=== PATIENT | female | born 1990 | race Caucasian/White ===

== ENCOUNTER → 2018-03-21 08:40 | Outpatient (CLI) | payer OTHER, SELFPAY ==
--- NOTE | 2018-03-21 08:40 | DT_ITS ---
This patient was seen during an EMR downtime March 18, 2018 - March 25, 2018. This patient may have a combination of paper and electronic documentation or all paper documentation. All documentation is viewable within the e-chart portion of [facility] for each patient visit.
[2018-04-02 14:47] LABS: HPV Reflexed? NOT INDICATED
== END ==
PROVIDERS: Visit Provider Obstetrics & Gynecology
DX: Z12.4 Encounter for screening for malignant neoplasm of cervix (principal)
CPT/HCPCS: 88175; G0145

== ENCOUNTER → 2018-04-30 08:04 | Outpatient (CLI) | payer OTHER, SELFPAY ==
[2018-04-30 08:57] LABS: Anion Gap 7 (5-15); BUN 17 mg/dL (7-18); BUN/Creat Ratio 16.3 RATIO (10-20); Calcium,Total 8.8 mg/dL (8.5-10.1); Chloride 108 mmol/L (98-107); Cholesterol 111 mg/dL (200); Creatinine, Serum 1.04 mg/dL (0.55-1.02); EST Glomerular Filtration Rate 68 mL/min (>60); Est Glom Filt Rate - Afr Amer 82 mL/min (>60); Glucose 85 mg/dL (74-106); High Density Lipoprotein 43 mg/dL; Potassium 4.4 mmol/L (3.5-5.1); Sodium Level 142 mmol/L (136-145); Triglycerides 43 mg/dL; Very Low Density Lipoprotein 9 mg/dL (5-40)
== END ==
PROVIDERS: Family Provider Family Medicine; PCP Family Medicine; Visit Provider Family Medicine
DX: Z00.00 Encounter for general adult medical examination without abnormal findings (principal)
CPT/HCPCS: 36415; 80048; 80061

== ENCOUNTER → 2019-06-18 07:57 | Outpatient (CLI) | payer OTHER, SELFPAY ==
[2019-06-18 08:33] LABS: Absolute Lymphocyte Count 2.53 X10^3/uL (0.83-4.51); Absolute Neutrophil Count 2.2 X10^3/uL (2.0-7.7); Basophil# 0.02 X10^3/uL; Basophil% 0.4 % (0-1); Eosinophil# 0.04 X10^3/uL; Eosinophils% 0.8 % (0-5); Hematocrit 39.2 % (37-47); Hemoglobin 12.8 g/dL (12.0-15.0); Lymphocyte # 2.53 X10^3/ul (4.0); Lymphocyte % 48.6 % (19-41); Mean Corp Hgb Conc 32.7 g/dL (32-36); Mean Corpuscular Hgb 31.1 pg (27.0-32.0); Mean Corpuscular Volume 95.4 fL (81-99); Mean Platelet Vol. 10.8 fl (6.2-12.0); Monocyte% 7.7 % (0-10); NRBC Flagged by Analyzer 0 % (0-5); Neutrophil # 2.21 X10^3/uL (2.7-7.7); Neutrophil % 42.3 % (47-70); Platelet Count 191 K/mm3 (150-450); RBC Distribution Width CV 12.4 % (11.6-14.6); RBC Distribution Width SD 43.7 fl (35.1-43.9); Red Blood Count 4.11 M/mm3 (4.2-5.4); White Blood Count 5.2 K/mm3 (4.4-11.0)
[2019-06-18 09:00] LABS: Anion Gap 5 (5-15); BUN 17 mg/dL (7-18); BUN/Creat Ratio 18.5 RATIO (10-20); Chloride 108 mmol/L (98-107); Cholesterol 134 mg/dL (200); Creatinine, Serum 0.92 mg/dL (0.55-1.02); EST Glomerular Filtration Rate 77 mL/min (>60); Est Glom Filt Rate - Afr Amer 93 mL/min (>60); Glucose 98 mg/dL (74-106); High Density Lipoprotein 60 mg/dL; Potassium 4.2 mmol/L (3.5-5.1); Sodium Level 142 mmol/L (136-145); Thyroid Stim Hormone (TSH) 2.61 uIU/mL (0.358-3.74); Triglycerides 56 mg/dL; Very Low Density Lipoprotein 11 mg/dL (5-40)
== END ==
PROVIDERS: Family Provider Family Medicine; PCP Family Medicine; Referring Provider Family Medicine; Visit Provider Family Medicine
DX: Z01.419 Encounter for gynecological examination (general) (routine) without abnormal findings (principal); R53.83 Other fatigue
CPT/HCPCS: 36415; 80048; 80061; 84443; 85025

== ENCOUNTER → 2019-06-20 10:18 | Outpatient (CLI) | payer OTHER, SELFPAY ==
[2019-06-20 12:19] LABS: Erythrocyte Sedimentation Rate 1 mm/hr (0-20)
[2019-06-20 13:50] LABS: CRP < 2.90 mg/L (0.0-3.0); Rheumatoid Factor < 10.0 IU/mL (<15)
[2019-06-22 10:40] LABS: CMV Acute Antibody IgM < 30.0 AU/mL (0.0-29.9); CMV Antibody IgG < 0.60 U/mL (0.00-0.59); EBV Acute VCA IgM < 36.0 U/mL (0.0-35.9); EBV Early Antigen IgG <9.0 U/mL (0.0-8.9); EBV Nuclear Antigen IgG > 600.0 U/mL (0.0-17.9)
[2019-06-23 16:07] LABS: Anti-Centromere B Ab <0.2 AI (0.0-0.9); Anti-Chromatin 0.3 AI (0.0-0.9); Anti-Jo <0.2 AI (0.0-0.9); Anti-Scleroderma-70 AB <0.2 AI (0.0-0.9); RNP Ab 0.4 AI (0.0-0.9); SJOGREN'S Anti-SS-A test < 0.2 AI (0.0-0.9); SJOGREN'S Anti-SS-B test < 0.2 AI (0.0-0.9); Smith Ab <0.2 AI (0.0-0.9)
[2019-06-24 09:57] LABS: Anti-dsDNA Ab <1 IU/mL (0-9)
== END ==
PROVIDERS: Family Provider Family Medicine; PCP Family Medicine; Visit Provider Family Medicine
DX: R53.83 Other fatigue (principal)
CPT/HCPCS: 36415; 85652; 86140; 86225; 86235; 86431; 86644; 86645; 86663; 86664; 86665

== ENCOUNTER 2020-11-24 17:27 | Emergency (ER) | payer OTHER, SELFPAY ==
[2020-11-24 17:27] VITALS: BP 121/20; PULSE 48; PULSE 93; RESP 18; TEMP 36.4; O2SAT 95; BMI 29.1
--- NOTE | 2020-11-24 18:18 | ED.VISSUMM ---
- ER Visit Summary Date of Service: 11/24/20 Chief Complaint: Urinary retention History of Present Illness: The patient is a 30 F with no primary care physician. She had egg retrieval for in vitro fertilization at 1:[address] Thomas at [facility]. She reports that she did get general anesthesia for this and was out. It was a transvaginal approach. Patient reports she has not been able to urinate since 30 minutes prior to the procedure. She complains of a sharp suprapubic pain that is 10 out of 10 in severity. Nothing makes this better or worse. She is never had anything like this before. She denies any urinary complaints prior to the procedure. Physical Examination: Vitals: Stable. Afebrile. General: Well-nourished and well-developed. Head: Normocephalic atraumatic. Neck: Supple, no lymphadenopathy. No JVD. Nontender. Cardiovascular: Regular rate and rhythm. No murmurs. Respiratory: No respiratory distress. Clear to auscultation bilaterally. Abdominal: Soft, moderate suprapubic tenderness with an obviously distended bladder, nondistended, normal bowel sounds. No guarding, rebound, or peritoneal signs. Back: Nontender. Extremities: Nontender, no edema. Skin: Normal color, no rash. Neurologic: Alert and oriented ?3. Cranial nerves II through XII are intact. Normal strength and sensation. Psych: Normal affect. Test Results: CBC is remarkable for a white count of 13.7 with 71 segs neutrophils. Chem-7 is normal. UA is negative. Emergency Department Course and Treatment: Patient had a Boyer catheter placed with immediate return of 1 L of urine. It was then clamped. When this is released another 700 cc of urine returned. She reports that her pain is down to a 2 out of 10 in severity. Treatment Plan: The patient was discussed with Dr. Kong. She asked that the patient be discharged with a leg bag and they will set up an appointment with uro-Nitroglycerin Distributor in 2 days. Return to the emergency department for any worsening symptoms. Disposition: To home in improved and stable condition. Impression: 1 1. Urinary retention. 2. Postop day #0 status post egg retrieval with IV anesthesia. This note was generated with [employer] dictation software. It may contain incorrect words, spelling, and punctuation that were not noted in review of the chart prior to signing ED Disposition - Plan for ED Patient: Instructions: ED Urinary Retention, Female Prescriptions: Hydrocodone Bitart/Apap 5-325 [[place] 5MG-325MG] 1 tab PO Q4H PRN PRN 2 Days #10 tab PRN Reason: Pain Prescription Printed Additional Instructions: Follow-up with the urology/universal grinder tool in 2 days for a repeat exam.
[2020-11-24] MEDS: 0.9% Normal Saline 1,000 ML 999 ML IV (18:22)
[2020-11-24 18:26] LABS: Absolute Lymphocyte Count 2.98 X10^3/uL (0.83-4.51); Absolute Neutrophil Count 9.7 X10^3/uL (2.0-7.7); Basophil# 0.02 X10^3/uL; Basophil% 0.1 % (0-1); Eosinophil# 0.03 X10^3/uL; Eosinophils% 0.2 % (0-5); Hematocrit 37.8 % (37-47); Hemoglobin 12.5 g/dL (12.0-15.0); Lymphocyte # 2.98 X10^3/ul (4.0); Lymphocyte % 21.8 % (19-41); Mean Corp Hgb Conc 33.1 g/dL (32-36); Mean Corpuscular Hgb 30.8 pg (27.0-32.0); Mean Corpuscular Volume 93.1 fL (81-99); Mean Platelet Vol. 10.1 fl (6.2-12.0); Monocyte# 0.83 X10^3/uL; Monocyte% 6.1 % (0-10); NRBC Flagged by Analyzer 0 % (0-5); Neutrophil # 9.74 X10^3/uL (2.7-7.7); Neutrophil % 71.4 % (47-70); Platelet Count 212 K/mm3 (150-450); RBC Distribution Width CV 11.7 % (11.6-14.6); Red Blood Count 4.06 M/mm3 (4.2-5.4); White Blood Count 13.7 K/mm3 (4.4-11.0)
[2020-11-24 18:27] LABS: Bacteria 0 SEEN /hpf (None Seen); Mucous, Urine 0 SEEN /hpf (<or=2+); Red Blood Cells-Urine 0 SEEN /hpf (0-5); White Blood Cells 0 SEEN /hpf (0-5)
[2020-11-24 18:33] LABS: Anion Gap 4 (5-15); BUN 12 mg/dL (7-18); BUN/Creat Ratio 13.3 RATIO (10-20); Calcium,Total 8.7 mg/dL (8.5-10.1); Chloride 106 mmol/L (98-107); EST Glomerular Filtration Rate 78 mL/min (>60); Est Glom Filt Rate - Afr Amer 94 mL/min (>60); Estimated Creatinine Clearance 89.69 ml/min; Glucose 94 mg/dL (74-106); Potassium 3.6 mmol/L (3.5-5.1); Sodium Level 138 mmol/L (136-145)
[2020-11-24 18:35] LABS: Color, Urine Yellow (Yellow); Glucose, Dipstick Normal (Normal); Ketone-Dipstick Negative (Negative); Leukocyte Esterase-Dipstick Negative /ul (Negative); Nitrite-Dipstick Negative (Negative); Occult Blood-Urine Negative /ul (Negative); Protein-Dipstick Negative (Negative); Specific Gravity, Urine 1.005 (1.002-1.030); Urine Bilirubin Dipstick Negative (Negative); Urine Clarity Sl. Cloudy (Clear); Urine Urobilinogen Normal (Normal)
[2020-11-24 18:41] LABS: Squamous Epithelial Cells - UA 0-5 SEEN /hpf (5-10)
[2020-11-24 18:42] LABS: Amorphous Sediment 1+ PHOS
[2020-11-24 19:52] VITALS: BP 129/63; PULSE 53; RESP 16; O2SAT 100
== END 2020-11-24 20:01 | disposition home or self-care (01) ==
LOC: ED 18:44
PROVIDERS: Emergency Provider Emergency Medicine; PCP Family Medicine
DX: R33.9 Retention of urine, unspecified (principal); Z98.890 Other specified postprocedural states
CPT/HCPCS: 51702; 80048; 81001; 85025; 96360; 99284; J7030; A4216

== ENCOUNTER 2021-10-20 15:13 | Emergency (ER) | payer OTHER, SELFPAY ==
[2021-10-20 15:15] VITALS: BP 147/95; PULSE 62; RESP 18; TEMP 35.8; O2SAT 99; BMI 33.0
--- NOTE | 2021-10-20 15:51 | ED.VIS.FEGU ---
HPI HPI - Female History of Present Illness Chief Complaint: Vag Bleeding Informant: patient Bleeding Issue: Positive for Vaginal bleeding Onset: Days (4) Context: - (since 4d ago) Timing: Continuous Current Severity: Similar to period Maximum Severity: Similar to period Narrative Narrative: Patient has spontaneous vaginal delivery 4 days ago, she was 41 weeks gestation and was induced. She has had bleeding ever since, today she had a large clot come out with the bleeding that is no worse otherwise. She denies any systemic symptoms. She talked to her OB about the clot and was advised to come to the nearest emergency department for evaluation. She denies any near syncope, vomiting, pain in her abdomen, trouble urinating, or fevers/chills. PFSH PFSH Medical History no medical history no medical history Allergy/AdvReac Type Severity Reaction Status Date / Time No Known Allergies Allergy Verified 10/20/21 15:18 Surgical History no surgical history Social History Smoking Status: Never smoker ROS ROS ED Constitutional Constitutional ED: Denies chills or fever(s) Gastrointestinal Gastrointestinal: Denies abdominal pain, constipation, fecal incontinence, nausea or vomiting Genitourinary Genitourinary ED: Reports as per HPI, vaginal bleeding and other Details: no urinary retention ; Denies abdominal discomfort or urinary incontinence Musculoskeletal Musculoskeletal: Reports as per HPI and back pain; Denies neck pain Integumentary Denies rash or wounds Neurologic Neurologic: Denies headache(s), paresthesias or weakness EXAM Physical Exam Const Vital Signs: 10/20/21 15:15 10/20/21 16:20 10/20/21 17:09 Temperature 96.5 F L Temperature Source Temporal Pulse Rate 62 88 70 Respiratory Rate 18 14 16 Blood Pressure 147/95 H 128/64 H Blood Pressure Mean 112 85 Pulse Ox 99 98 97 Oxygen Delivery Method Room Air Room Air Room Air Positive well nourished and well developed Constitutional Narrative: Well-appearing, no distress, conversive in full sentences without any apparent discomfort General Appearance ED: well developed and NAD HEENT Negative for trauma or tenderness Eyes PERRL and EOMs intact bilaterally Neck full ROM and supple Cardio regular rate, regular rhythm and no murmurs Rate: Negative for tachycardic GI normal to inspection, nondistended, normoactive bowel sounds and soft to palpation GI Narrative: Mild suprapubic tenderness, fundus palpable well below the umbilicus Speculum Exam - Vagina: vaginal bleeding Back/Spine normal to inspection Thoracic Spine / Upper Back: paraspinal muscle tenderness Lumbar Spine / Lower Back: ROM limited and straight leg raise negative bilaterally Extremity normal to inspection, full ROM and no pedal edema Neuro oriented x3, no sensory deficits noted and gait normal Sensorium / Orientation: alert Motor Exam: strength 5/5 throughout Plantar Reflex: Downgoing: bilateral Psych mental status grossly normal and thought process normal Skin no rashes or lesions noted and no wounds MDM MDM MDM Narrative Medical decision making narrative: Blood counts are good, her vital signs are stable, I discussed with the quality control microbiology supervisor on for Dr. Lara, both with the patient's OB practice, they requested a transabdominal ultrasound be done, we did that and it did not show any radiographically visible products of conception, I described the findings from the radiologist on the ultrasound, and the quality control microbiology supervisor was okay with the patient going home and following up, communicating with them with any other acute issues until her routine scheduled follow-up. Patient comfortable with that plan. Lab Data Attestation: I reviewed the patient's lab results. Labs: Laboratory Results - last 24 hr 10/20/21 16:10 WBC 11.3 H RBC 3.91 L Hgb 12.6 Hct 37.1 MCV 94.9 MCH 32.2 H MCHC 34.0 RDW Std Deviation 43.4 RDW Coeff of Courtney 12.5 Plt Count 270 MPV 9.7 Immature Gran % (Auto) 0.400 Neut % (Auto) 76.2 H Lymph % (Auto) 16.4 L Rice % (Auto) 6.3 Eos % (Auto) 0.4 Baso % (Auto) 0.3 Absolute Neuts (auto) 8.6 H Absolute Lymphs (auto) 1.86 Nucleated RBC % 0 Radiography Diagnostic Testing: Clinical Impression(s) from Imaging Studies Pelvis Ultrasound 10/20/21 16:00 IMPRESSION: There are no acute findings. Enlarged uterus. Electronically Signed: Corey Rosas MD at 17:34 EST , Service support , Discharge Plan Triage Chief Complaint: Vag Bleeding ED Provider: Justin,Carl Dx/Rx/DC Orders Clinical Impression: hemorrhage of vagina Instructions: ED Dysfunctional Uterine Bleeding Primary Care Provider: Care Physician,No Primary Referrals: Jose Enrique Rice DO [NON-STAFF] - (As scheduled, or call with any concerns sooner if needed) Care Physician,No Primary [Primary Care Provider] - Disposition Disposition: Home, Self Care
--- NOTE | 2021-10-20 16:00 | US_ITS ---
STUDY: ULTRASOUND OF THE FEMALE PELVIS - COMPLETE REASON FOR EXAM: Female, 31 years old. Technologist Notes Other, HEAVY BLEEDING W/ CLOTS, VAGINAL DELIVERY 4 DAYS AGO vag bleeding, eval for retained POC TECHNIQUE: Transabdominal COMPARISON: None. FINDINGS: The uterus is anteverted and is in a midline position. The uterus measures 18.8 cm. Normal uterine cervix. The endometrium measures 7 mm in thickness, and is hyperechoic. There is no demonstrated endometrial mass. There is no demonstrated myometrial mass. I.U.D. - The patient does not have an I.U.D. The right ovary is visualized. The right ovary measures 3.3 cm. There is no right ovarian cyst or ovarian mass. There is no visualized right adnexal mass or complex lesion. There is normal arterial and normal venous vascularity. The left ovary is visualized. The left ovary measures 2.5 cm. There is no left ovarian cyst or ovarian mass. There is no visualized left adnexal mass or complex lesion. There is normal arterial and normal venous vascularity. There is no fluid in the cul-de-sac. US/Pelvic (Non ) IMPRESSION: There are no acute findings. Enlarged uterus. Electronically Signed: Corey Rosas MD at 17:34 EST , Service support ,
[2021-10-20 16:20] VITALS: PULSE 88; RESP 14; O2SAT 98
[2021-10-20 16:21] LABS: Absolute Lymphocyte Count 1.86 X10^3/uL (0.83-4.51); Absolute Neutrophil Count 8.6 X10^3/uL (2.0-7.7); Basophil# 0.03 X10^3/uL; Basophil% 0.3 % (0-1); Eosinophil# 0.04 X10^3/uL; Eosinophils% 0.4 % (0-5); Hematocrit 37.1 % (37-47); Hemoglobin 12.6 g/dL (12.0-15.0); Lymphocyte # 1.86 X10^3/ul (0.83-4.51); Lymphocyte % 16.4 % (19-41); Mean Corpuscular Hgb 32.2 pg (27.0-32.0); Mean Corpuscular Volume 94.9 fL (81-99); Mean Platelet Vol. 9.7 fl (6.2-12.0); Monocyte# 0.71 X10^3/uL; Monocyte% 6.3 % (0-10); NRBC Flagged by Analyzer 0 % (0-5); Neutrophil # 8.63 X10^3/uL (2.7-7.7); Neutrophil % 76.2 % (47-70); Platelet Count 270 K/mm3 (150-450); RBC Distribution Width CV 12.5 % (11.6-14.6); RBC Distribution Width SD 43.4 fl (35.1-43.9); Red Blood Count 3.91 M/mm3 (4.2-5.4); White Blood Count 11.3 K/mm3 (4.4-11.0)
[2021-10-20 17:09] VITALS: BP 128/64; PULSE 70; RESP 16; O2SAT 97
[2021-10-20 18:05] VITALS: BP 128/79; PULSE 74; RESP 16; TEMP 36.6; O2SAT 97
== END 2021-10-20 18:06 | disposition home or self-care (01) ==
PROVIDERS: Emergency Provider Emergency Medicine; Visit Provider Emergency Medicine
DX: O72.2 Delayed and secondary postpartum hemorrhage (principal); Z3A.41 41 weeks gestation of pregnancy
CPT/HCPCS: 76856; 85025; 99284

== ENCOUNTER 2023-03-03 20:43 | Outpatient (CLI) | payer OTHER, SELFPAY ==
[2023-03-03 21:03] VITALS: PULSE 89; O2SAT 96
[2023-03-03 21:04] VITALS: BP 132/71; PULSE 84
--- NOTE | 2023-03-07 19:07 | OB.TRI.NOTE ---
HPI - General General Date of Admission: 03/05/23 Date of Service: 03/05/23 Chief Complaint: abdominal pain HPI Narrative TINO JENSEN, is a 32 F who presents 3 P1 at 29 weeks presents for some abdominal pain. She denies any vaginal bleeding or leaking of fluid. She called her routine physician and they told her she should be evaluated. [facility] PFS Medical History Painless rectal bleeding Home Medications Bacillus coagulans 800 million cell tablet (Digestive Advantage Probiotics-Prebiotic) cell PO 09/05/22 [History Last Taken Unknown] calcium citrate 250 mg PO .q.i.d 09/05/22 [History Last Taken Unknown] mupirocin 2 % topical ointment 1 applic topical TID 09/05/22 [History Last Taken Unknown] omega-3 fatty acids 1,000 mg capsule 1,000 mg PO DAILY 09/05/22 [History Last Taken Unknown] thyroid (pork) 30 mg tablet ([place] Thyroid) 30 mg PO DAILY 09/05/22 [History Last Taken Unknown] Allergy/AdvReac Type Severity Reaction Status Date / Time fentanyl AdvReac Other Verified 03/03/23 21:51 Family History Mother Arthritis Depression Osteoarthritis Osteoporosis Surgical History S/P LASIK surgery of both eyes Social History household members: spouse Smoking Status: Never smoker alcohol intake: current alcohol intake frequency: a few times a month NST FHR Rate Baby A Baseline: 130 Variability:: Moderate Accelerations:: 15 x 15 Decelerations:: None NST Reactive:: Yes FHR Category:: Category I Uterine Activity:: quiet Assessment & Plan (1) 29 weeks gestation of : PLAN: 29-week high risk multigravida with abdominal pain. Nonspecific abdominal pain. No evidence of labor. No UTI symptoms. Patient was discharged home to follow-up with her routine physician or return as needed.
== END 2023-03-03 21:55 | disposition home or self-care (01) ==
LOC: WPOUT 20:48 → WP 20:48
PROVIDERS: Referring Provider Advanced Practice Midwife; Visit Provider Advanced Practice Midwife
DX: O99.891 Other specified diseases and conditions complicating pregnancy (principal); R10.9 Unspecified abdominal pain; Z3A.29 29 weeks gestation of pregnancy
CPT/HCPCS: 59025; 59050; 99221; G0378

== ENCOUNTER 2023-03-26 01:28 | Emergency (ER) | payer OTHER, SELFPAY ==
[2023-03-26 01:29] VITALS: BP 128/79; PULSE 108; RESP 15; TEMP 36.7; O2SAT 97
[2023-03-26] MEDS: Lidocaine 2% /Epi 1:100 (20ml) 20 ML VIAL INFILT (02:54)
--- NOTE | 2023-03-26 04:06 | EX.ED.DYSGE1 ---
HPI History of Present Illness Chief Complaint: Abscess Informant: patient Narrative Narrative: Patient is a 32-year-old female who is a who reports she is approximate 35 weeks . She states over the last 2 to 3 days she has noticed increasing pain and swelling along the left lower portion of her inner thigh/labia. She states she was planning on calling the LDR NURSE but the pain is increased to the point where she cannot take anymore and is not responding to [id number] medications and with concern for infection she presents for evaluation. She denies any vaginal bleeding or discharge or loss of fluid PFSH PFS Medical History Painless rectal bleeding Home Medications Bacillus coagulans 800 million cell tablet (Digestive Advantage Probiotics-Prebiotic) cell PO 09/05/22 [History Last Taken Unknown] calcium citrate 250 mg PO .q.i.d 09/05/22 [History Last Taken Unknown] mupirocin 2 % topical ointment 1 applic topical TID 09/05/22 [History Last Taken Unknown] omega-3 fatty acids 1,000 mg capsule 1,000 mg PO DAILY 09/05/22 [History Last Taken Unknown] thyroid (pork) 30 mg tablet ([place] Thyroid) 30 mg PO DAILY 09/05/22 [History Last Taken Unknown] cephalexin 500 mg capsule 500 mg PO TID 7 days #21 caps 03/26/23 [Rx Last Taken Unknown] Allergy/AdvReac Type Severity Reaction Status Date / Time fentanyl AdvReac Other Verified 03/26/23 01:34 Family History Mother Arthritis Depression Osteoarthritis Osteoporosis Surgical History S/P LASIK surgery of both eyes Social History household members: spouse Smoking Status: Never smoker alcohol intake: current alcohol intake frequency: a few times a month ROS ROS ED Constitutional Constitutional ED: Denies chills or fever(s) ENT ENT ED: Denies sore throat Cardiovascular Cardiovascular: Denies chest pain Respiratory/Chest Respiratory/Chest: Denies cough or dyspnea Gastrointestinal Gastrointestinal: Denies abdominal pain, diarrhea, nausea or vomiting Genitourinary Genitourinary ED: Denies dysuria or hematuria Musculoskeletal Musculoskeletal: Denies myalgias Integumentary Reports abscess Neurologic Neurologic: Denies headache(s) Hematologic/Lymphatic Hematologic/Lymphatic: Denies easy bleeding or easy bruising EXAM Physical Exam Const Vital Signs: 03/26/23 01:29 Temperature 98.1 F Temperature Source Oral Pulse Rate 108 H Respiratory Rate 15 Blood Pressure 128/79 H Blood Pressure Mean 95 Pulse Ox 97 Oxygen Delivery Method Room Air Positive well nourished and well developed General Appearance ED: well developed Eyes PERRL and EOMs intact bilaterally Neck supple Resp normal respiratory effort and clear to auscultation bilaterally Cardio regular rate and regular rhythm Narrative: Along the left lower inguinal/perineal region there is a 1 x 2 cm area of erythema warmth and induration that is tender to touch most consistent with abscess. This lesion is just lateral of the labia and indicates it is more on the soft tissue skin not vaginal tissue. There is no discharge or bleeding noted from the vaginal os. Extremity normal to inspection Neuro oriented x3 and CN's II-XII intact bilaterally Sensorium / Orientation: alert Psych mental status grossly normal Skin Skin Narrative: Soft tissue changes along the left inguinal region as documented above consistent with abscess MDM MDM MDM Narrative Medical decision making narrative: Patient presented to the ER afebrile the area in question is located along the left lower inguinal region and does not appear to involve the vagina and there are no secondary changes to suggest systemic infection such as lymphangitic streaking or fever. Therefore at this time my concern for Bartholin cyst/abscess versus systemic infection from a secondary cellulitis is low. Also as the patient does not have abdominal pain or loss of fluid concern for issue such as spontaneous bleeding from a subchorionic hemorrhage or rupture membranes is low. I do not feel there is need for laboratory studies as the physical exam indicates the infection is localized in the soft tissue. Therefore the area was incised and drained as documented below and following this patient is safe for discharge and can follow-up with her LDR NURSE for further evaluation Patient had the left inguinal region cleaned with chlorhexidine. It was anesthetized with 8 mL of 2% lidocaine with epinephrine in local fashion. A #11 blade was used to make a 1 cm incision over top the area of induration. A large amount of purulent material was expressed. Loculations were dissected with a needle torres. The area was copiously irrigated with normal saline. Then quarter-inch endoform gauze was packed into the wound. Patient tolerated the procedure well without complication. History & Record Review Discussion w/independent historian: Patient Discharge Plan Triage Chief Complaint: Abscess ED Provider: Selvin Trevino Dx/Rx/DC Orders Clinical Impression: Abscess of female pelvis Instructions: ED Abscess Incision And Drainage Prescriptions: New cephalexin 500 mg capsule 500 mg PO TID 7 Days Qty: 21 0RF No Action mupirocin 2 % ointment 1 applic topical TID Digestive Advantage Probio-Pre 800 million cell tablet PO calcium citrate 250 mg calcium tablet 250 mg PO .q.i.d thyroid (pork) [[place] Thyroid] 30 mg tablet 30 mg PO DAILY omega-3 fatty acids 1,000 mg capsule 1,000 mg PO DAILY Primary Care Provider: Care Physician,No Primary Referrals: Care Physician,No Primary [Primary Care Provider] - Activity Restrictions/Additional Instructions: Follow-up with your LDR NURSE for repeat evaluation. If your packing does not fall out on its own remove it in 48 to 72 hours please. Please contact your LDR NURSE to notify them of the ER visit this morning/evening and tell them you have been prescribed Keflex/cephalexin for your pelvic abscess. If you have any further concerns or worsening of symptoms please return to the ER for repeat evaluation Disposition Disposition: Home, Self Care Discharge Date/Time: 03/26/23 04:22
[2023-03-26 04:20] VITALS: BP 122/70; PULSE 74; RESP 16; O2SAT 98; BMI 26.3
== END 2023-03-26 04:22 | disposition home or self-care (01) ==
PROVIDERS: Emergency Provider Emergency Medicine; Visit Provider Emergency Medicine
DX: O99.891 Other specified diseases and conditions complicating pregnancy (principal); N73.9 Female pelvic inflammatory disease, unspecified; Z3A.35 35 weeks gestation of pregnancy
CPT/HCPCS: 99282

== ENCOUNTER 2025-10-10 11:40 | Outpatient (CLI) | payer OTHER, SELFPAY ==
--- OUTSIDE RECORDS SUMMARY | 2025-10-10 11:46 | XMS RPT_ITS | CCD ---
Author Organization [facility] Care Team Providers Care Toilet And Laundry Soap Supervisor Name Role Phone PHYSICIAN, NONE Primary Care Physician Unavailab leslee RODRIGUEZ APRN-SATISH, LUIZ Primary Care Physician Care Physician, No Primary Referring Unava ilable Care Physician, No Primary Primary Care Unava ilable Clifford Anton Attending Unavailable Care Physician, No Primary Primary Care Unava ilable Dasia Barakat Referring Unavailable Dasia Barakat Attending Unavailable Care Physician, No Primary Primary Care Unava ilable Selvin Trevino Attending Unavailable Care Physician, No Primary Referring Unava ilable Care Physician, No Primary Primary Care Unava ilable Priscila Rivas NP Attending Unavailable LIEN LU-ANDREW, SHAHBAZ Chanel Attending Mireille vaJOSE ENRIQUE Correa DO Admitting Unavailab JOSE ENRIQUE Ballard DO Attending Unavailab leslee ZHANG, LUIZ Primary Care Maria Eugenia ALARCON, SHAHBAZ Chanel Attending Mireille vayazmin ZHANG, LUIZ Primary Care ATILIO Kaiser Admitting Unavailable ATILIO RODRIGUEZ Attending Unavailable ATILIO RODRIGUEZ Primary Care Unavailable PHYSICIAN, NOT RECORDED Primary Care Physician Corrie ALARCON, DASIA Cordova Attending Mireillev ailthu PHYSICIAN, NOT RECORDED Primary Care Unavaila SHAHBAZ Hairston Attending Mireille vayazmin ALARCON, HERNANDEZ Chanel Attending Unavai fredy PHYSICIAN, NOT RECORDED Primary Care Unavaila AMERICO De La Torre Attending Unavailable AJ ZACARIAS Primary Care Unavail able Allergies Allergy Classification Reported Allergen(s) Allergy Type Date of Onset Reaction(s) Facility Opioid Agonists (1 source) fentaNYL; Translations: [fentanyl] Drug Allergy [facility] (4 sources) fentaNYL; Translations: [fentanyl] Drug Allergy [facility] (1 source) fentaNYL Drug Allergy 03-26-2023 [facility] Repository Medications Current Medications Medication Drug Class(es) Dates Sig (Normalized) Sig (Original) calcium citrate 1040 mg oral tablet (11 sources) Start: 10-14-2021 calcium (as calcium citrate) 250 mg oral tablet Dose : 1,000 mg = 4 tab(s), Oral, qAM, # 60 tab(s), 0 Refill(s) Start Date: 10/14/21 Status: Ordered Medication Dispense Status: Completed Quantity: 60.0 Unit: tab(s) Total Allowed Fills: 1 Fills Dispensed: 0 Collagen Skin Renewal 30 mg-833.33 mg oral tablet (1 source) Start: 07-28-2025 take 1 tablet by mouth once daily Collagen Skin Renewal 30 mg-833.33 mg oral tablet Dose = 3 tab(s), Oral, qDay, # 120 tab(s), 0 Refill(s) Start Date: 07/28/25 Status: Ordered Medication Dispense Status: Completed Quantity: 120.0 Unit: tab(s) Total Allowed Fills: 1 Fills Dispensed: 0 Digestive Advantage Daily Probiotics oral capsule (11 sources) Start: 10-14-2021 take 1 capsule by mouth once daily Digestive Advantage Daily Probiotics oral capsule Dose = 1 cap(s), Oral, qDay, # 30 cap(s), 0 Refill(s) Start Date: 10/14/21 Status: Ordered Medication Dispense Status: Completed Quantity: 30.0 Unit: cap(s) Total Allowed Fills: 1 Fills Dispensed: 0 Start: 10-14-[address] [facility] once daily Digestive Advantage Daily Probiotics oral capsule Dose = 1 cap(s), Oral, qDay, # 30 cap(s), 0 Refill(s) Start Date: 10/14/21 Status: Ordered docusate sodium 100 mg oral capsule (2 sources) Start: 10-14-2021 Colace 100 mg oral capsule Dose : 100 mg = 1 cap(s), Oral, BID, PRN as needed for constipation, # 20 cap(s), 0 Refill(s) Start Date: 10/14/21 Status: Ordered Fish Oils (11 sources) Start: 10-14-2021 Fish Oil 1000 mg oral capsule Dose : 1,000 mg = 1 cap(s), Oral, qDay, # 90 cap(s), 0 Refill(s) Start Date: 10/14/21 Status: Ordered Medication Dispense Status: Completed Quantity: 90.0 Unit: cap(s) Total Allowed Fills: 1 Fills Dispensed: 0 Start: 10-14-2021 Fish Oil 1000 mg oral capsule Dose : 1,000 mg = 1 cap(s), Oral, qDay, # 90 cap(s), 0 Refill(s) Start Date: 10/14/21 Status: Ordered Miralax Powder Packet (2 sources) Start: 10-14-2021 take 17 doses by mouth once daily Miralax Powder Packet Dose : 17 gram(s) =, Oral, qDay, dissolve in water before taking, # 14 EA, 0 Refill(s) Start Date: 10/14/21 Status: Ordered Porcine Thyroid 60 Mg Capsule (1 source) Start: 07-21-2025 Porcine Thyroi d 60 Mg Capsule Porcine Thyroid 60 Mg Capsule, 0 Refill(s), 102.3 Start Date: 07/21/25 Status: Ordered Medication Dispense Status: Completed Total Allowed Fills: 1 Fills Dispensed: 0 Multivitamins (11 sources) Start: 10-14-2021 take 1 tablet by mouth once daily Multivitamins Dose = 1 tab(s), Oral, qDay, # 90 tab(s), 0 Refill(s) Start Date: 10/14/21 Status: Ordered Medication Dispense Status: Completed Quantity: 90.0 Unit: tab(s) Total Allowed Fills: 1 Fills Dispensed: 0 Start: 10-14-2021 take 1 tablet by felicia th once daily Multivitamins Dose = 1 tab(s), Oral, qDay, # 90 tab(s), 0 Refill(s) Start Date: 10/14/21 Status: Ordered Probiotic (11 sources) Start: 10-14-2021 take 1 capsule by mo uth once daily in the morning Probiotic 1 capsule, Oral, qAM, 0 Refill(s) Start Date: 10/14/21 Status: Ordered Medication Dispense Status: Completed Total Allowed Fills: 1 Fills Dispensed: 0 Start: 10-14-2021 take 1 capsule by mo ut once daily in the morning Probiotic 1 capsule, Oral, qAM, 0 Refill(s) Start Date: 10/14/21 Status: Ordered Progesterone (1 source) Progesterone Start: 07-21-2025 Progesterone 1 00 Mg (Straw) Tablet Progesterone 100 Mg (Straw) Tablet, 0 Refill(s), 102.3 Start Date: 07/21/25 Status: Ordered Medication Dispense Status: Completed Total Allowed Fills: 1 Fills Dispensed: 0 thyroid (halfway) 30 mg oral tablet (10 sources) Start: 08-18-2022 [place] Thyroid 30 mg oral tablet Dose : 30 mg = 1 tab(s), Oral, qDay, # 30 tab(s), 0 Refill(s) Start Date: 08/18/22 Status: Ordered Medication Dispense Status: Completed Quantity: 30.0 Unit: tab(s) Total Allowed Fills: 1 Fills Dispensed: 0 Start: 10-14-2021 [place] Thyroid 15 mg oral tablet Dose : 15 mg = 1 tab(s), Oral, qDay, # 30 tab(s), 0 Refill(s) Start Date: 10/14/21 Status: Ordered Vitamin D with Minerals oral tablet (10 sources) Start: 10-14-2021 take 1 tablet by mouth once daily Vitamin D with Minerals oral tablet Dose = 1 tab(s), Oral, qDay, # 30 tab(s), 0 Refill(s) Start Date: 10/14/21 Status: Ordered Medication Dispense Status: Completed Quantity: 30.0 Unit: tab(s) Total Allowed Fills: 1 Fills Dispensed: 0 Start: 10-14-2021 take 1 tablet by felicia once daily Vitamin D with Minerals oral tablet Dose = 1 tab(s), Oral, qDay, # 30 tab(s), 0 Refill(s) Start Date: 10/14/21 Status: Ordered Problems Problem Classification Problem Date Documented Da te Episodic/Chronic Abdominal pain (1 source) Unspecified abdominal pain; Translations: [Unspecified abdominal pain] Onset: 03-14-2023 Episodic Gastrointestinal hemorrhage (18 sources) Painless rectal bleeding; Translations: [Rectal hemorrhage] 03-31-2022 Episodic Immunizations and screening for infectious disease (11 sources) Rubella non-immune 10-14-2021 Episodic OB-related trauma to perineum and vulva (2 sources) Second degree perineal tear during delivery - delivered; Translations: [Second degree perineal laceration during delivery] Onset: 10-16-2021 Episodic Other complications of (1 source) ; Translations: [Outcome of delivery, unspecified] Onset: 10-16-2021 Episodic Other complications of (1 source) Supervision of high risk done; Translations: [Supervision of resulting from assisted reproductive technology, unspecified trimester] Onset: 10-14-2021 Episodic Other connective tissue disease (1 source) Pain in left thigh; Translations: [Pain in left thigh] Onset: 03-30-2023 Episodic Other nutritional; endocrine; and metabolic disorders (6 sources) Body mass index 30+ - obesity 05-11-2023 Chronic Other and delivery including normal (12 sources) ; Translations: [Delivery normal] Onset: 01-16-2021 10-14-2021 Episodic Comment on above: System added from do cumentation. Status documented as Yes on Admission Other screening for suspected conditions (not mental disorders or infectious disease) (1 source) Encounter for screening for diabetes mellitus; Translations: [Screening for diabetes mellitus] Onset: 08-11-2025 Episodic Residual codes; unclassified (1 source) Gestation period, 41 weeks; Translations: [41 weeks gestation of ] Onset: 10-16-2021 Episodic Residual codes; unclassified (1 source) Gestation period, 40 weeks; Translations: [40 weeks gestation of ] Onset: 05-19-2023 Episodic Residual codes; unclassified (1 source) 25 weeks gestation of ; Translations: [25 weeks gestation of ([facility])] Onset: 08-11-2025 Episodic Thyroid disorders (2 sources) Hypothyroidism; Translations: [Other specified hypothyroidism] Onset: 08-11-2025 07-28-2025 Chronic Results Test Name Value Interpretation Reference Range Facility Artem 07-30-2025 LAMONTE Telephone (4CQ) ---- JIA JENSEN ([id number]) 1990 F Date Time Provider Department 07/30/25 SELF 4CQ During your visit today, we recorded the following information about you: Lotus Hirsch 07/30/2025 3:25 PM Signed Pt is 24 weeks wanting to transfer care from [facility] to [facility]. Please advise, Thank you Kymberly Bryan RN 07/30/2025 3:38 PM Signed Call placed to patient to triage for new OB appt. Name and verified. Patient wishes to transfer to [facility] for OB care. MAYRA? 11/18/2025 Gestational age? 24w1d Patient aware to sign up for My Chart so she can receive the healthcare educator messages. What facility is she transferring from? [facility] When was her last office visit or will be the last visit with the current facility? 3/4 w ago Does patient have records she is bringing with her? Can have faxed, needs fax number Any current pelvic pain/vaginal bleeding or any medical concerns that affect the ? no Has patient tested + for GDM or HTN with this ? Has not had glucose yet, BP WNL Have you had your anatomy scan? WNL Which office/provider would the patient like to establish in? [facility] Will route this encounter to the desired office. Keli Chaudhari RN 07/30/2025 4:42 PM Signed Patient called and New OB appointment scheduled. 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 - MULTIVITAMIN ORAL Take by mouth once daily. - PNV/iron bg/omega-3/folic acid ( UJP-PGXI-WQ-OMEGA 3 ORAL) Take by mouth once daily. 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 LABORATORYOrdered By: SYSTEM SYSTEM on 07-28-2025 TSH Qn 1.68 m[IU]/L Normal 0.36 - 3.74 mcIU/mL AO ADM SS TSHRon 07-28-2025 TSH Qn 1.68 m[IU]/L Normal 0.36-3.74 [facility] Comment on above: Performed By: #### T [facility] #### [address] [address] ED MED ADMINISTRATION DETAIL on 04-11-2025 ED MED ADMINISTRATION DETAIL Form Tamper Operator Medication Administration Record [address] [address] [id number] 04/08/2025 Patient: JIA JENSEN Sex: Female : 1990 Age: 34y MEASUREMENTS: Wt: 86.2 kg, Ht/Artem: 67.0 in, BMI: 29.76 ALLERGIES: No known drug allergies Medication Ordered Medication Administration Date/Time IV NS 0.9 % 1000 18:59 04/08 IV NS 0.9 % 1000 mL started in bag#1 1000 mL at Started mL at 500 mL/hr 500 mL/hr via Site# 1. Allergies verified. IV patency established. IV 18:59 04/08/2025 (NOW x1) site checked: no pain, redness, or swelling. IV flushed thoroughly Dung Barrett R.N. pre-medication administration. Information reviewed with patient Stopped including reason for taking this medication. - 18:59 Dung Barrett, 20:00 04/08/2025 Amada Lara R.N. Scanned 20:00 04/08 Medication Discontinued: bag #1 infused. Total amount infused: 1000 mL. - 21:48 Linda Lara R.N. Potassium Chloride 19:54 04/08 Potassium Chloride PO 40 mEq given. Allergies Given PO 40 mEq (NOW verified and confirmed 5 rights. Information reviewed with patient. - 19:54 04/08/2025 x1) 19:54 Amada Quispe R.N. Scanned 1 of 1 Normal [facility] ED NURSES CLINICAL NOTEon ED NURSES CLINICAL NOTE Nurse Narrative Nurse Clinical Narrative [facility] [address] [facility] [place] [address] [id number] 04/08/2025 18:39:00 Patient: JIA JENSEN Sex: Female : 1990 Age: 34y Disposition: Discharge to Home Disposition Decision Time: 21:04 04/08/2025 Departure Time: 21:17 04/08/2025 TRIAGE Arrived by private vehicle. Historian: (patient). Accompanied by family. Primary physician (SAMAN/ VALENTIN Groves). Triage time: 18:32 04/08/2025. Acuity: LEVEL 3. Chief Complaint: SHORTNESS OF BREATH. This started today. No fever, chills, cough, wheezing or chest pain. No back pain. SEPSIS SCREEN: NEGATIVE. SIRS criteria negative. No possible sources of infection. -- 18:44 04/08/25 ANANDA Mario R.N. 18:43 04/08/25. BP: 128/82 MAP: 97. HR: 63. RR: 14. O2 saturation: 100% Temperature: 98.6 F. Pain level now 0/10. -- 18:43 04/08/25 ANANDA Mario R.N. Measurements: 18:43 04/08/25 Wt: 86.2 kg, Ht/Artem: 67.0 in, BMI: 29.76 -- 18:43 04/08/25 ANANDA Mario R.N. Medications: Porcine Thyroid 60 Mg Capsule: TAKE 1 CAPSULE BY MOUTH ONCE DAILY -- 18:45 04/08/25 ANANDA Mario R.N. Ovidrel 250 mcg/0.5 mL subcutaneous syringe: INJECT 1 SYRINGE SUBCUTANEOUSLY WHEN DIRECTED -- 18:45 04/08/25 ANANDA Mario R.N. 1 of 4 Nurse Narrative progesterone 50 mg/mL intramuscular oil: INJECT 1 ML INTRAMUSCULARLY ONCE DAILY DIRECTED -- 18:45 04/08/25 ANANDA Mario R.N. 18:32 04/08/25. Preferred Pharmacy: ([facility]). -- 18:44 04/08/25 ANANDA Mario R.N. Allergies: no known drug allergies -- 18:41 04/08/25 ANANDA Mario R.N. Home Medications/Allergy Information Source: patient -- 18:40 04/08/25 ANANDA Mario R.N. Problems: Hypothyroidism -- 18:40 04/08/25 ANANDA Mario R.N. Surgeries: Endoscopy -- 18:40 04/08/25 ANANDA Mario R.N. History 18:32 04/08/25. PAST MEDICAL HX: Immunizations: status is unknown. Immunizations not up to date. LNMP: Last normal menstrual period unknown. 4. Para 2. Abortions 1. status: currently : EDC:2025 8 weeks. SOCIAL HX: Never smoker. No alcohol use or drug use. The patient has not traveled outside the [place] Infectious disease exposure: No infectious disease exposure. ABUSE ASSESSMENT: The patient answered yes to the question(s) Do you feel safe in your home? and no to the question(s) Are you afraid to go home?. Abuse denied. No suspicion of abuse. SELF HARM ASSESSMENT: Self harm assessment was performed. The patient answered no to the question(s) Have you recently felt down, depressed, or hopeless? and Do you have thoughts of harming or killing yourself?. 2 of 4 Nurse Narrative FALL RISK ASSESSMENT: Fall risk assessment completed. No risk factors identified. -- 18:44 04/08/25 ANANDA Mario R.N. Interventions 18:32 04/08/25. Advanced care plan discussed with patient (Full code). -- 18:44 04/08/25 ANANDA Mario R.N. PHYSICAL ASSESSMENT 19:04 04/08/25. GENERAL / NEURO / PSYCH: Alert. Oriented X 4. Appears in no acute distress. HEENT: Mucous membranes are pink. RESPIRATORY: No respiratory distress. Respirations not labored. Chest nontender. Breath sounds within normal limits. ( Pt states she feels like she cant take a deep breath). CVS: Normal sinus rhythm noted. Capillary refill less than 2 seconds. GI / : Abdomen soft and nontender. Bowel sounds within normal limits. SKIN: Skin is warm and dry. Normal skin turgor. -- 19:04 04/08/25 EDT Dung Barrett R.N. NURSING PROGRESS NOTES 18:40 04/08/25. Site #1 started in the left antecubital space with an 18g angiocath with aseptic technique and good blood return; 1 attempt. Blood drawn: rainbow set tube(s). Labeled in the presence of the patient and sent to the lab. Saline lock flushed with 5 mL saline. -- 18:40 04/08/25 EDT Dung Barrett R.N. 18:41 04/08/25. Two patient identifiers checked. Call light placed in reach. Side rails up x 1. Bed placed in lowest position. Brakes of bed on. -- 18:41 04/08/25 EDT Dung Barrett R.N. 18:50 04/08/25. 12-LEAD EKG: EKG time: (18:41 04/08/2025). 12-Lead EKG was performed by me and shown to the ED physician. -- 18:50 04/08/25 EDT Edda Faulkner 18:59 04/08/25. IV NS 0.9 % 1000 mL started in bag#1 1000 mL at 500 mL/hr via Site# 1. Allergies verified. IV patency established. IV site checked: no pain, redness, or swelling. IV flushed thoroughly pre-medication administration. Information reviewed with patient including reason for taking this medication. -- 18:59 04/08/25 EDT Dung Barrett R.N. 19:00 04/08/25. Care transferred and report received (Kiara). -- 19:22 04/08/25 EDT Linda Lara R.N. 19:13 04/08/25. Head of bed elevated. The patient reports no complaints and the patient is calm and resting quietly. Side rails up x (more content not included)... Normal [facility] ED ORDER SHEET (CPOE ONLY)on 04-11-2025 ED ORDER SHEET (CPOE ONLY) Order Sheet Order Sheet [place] [id number] [facility] [place] [address] [id number] 04/08/2025 Patient: JIA JENSEN Sex: Female : 1990 Age: 34y MEASUREMENTS: Wt: 86.2 kg, Ht/Artem: 67.0 in, BMI: 29.76 ALLERGIES: No known drug allergies MEDICATION/IV/DRIP/ FLUID ORDERS Order Description Priority Entered Acknowledged Completed IV NS 0.9 %1000 mL at 500 18:47 04/08/2025 18:58 18:59 mL/hr (NOW x1) Atilio Rodriguez, 04/08/2025 04/08/2025 D.ODung Randle R.N. R.N. Potassium Chloride PO40 mEq 19:34 04/08/2025 19:51 19:54 (NOW x1) Priscilla Acevedo M.D. 04/08/2025 04/08/2025 Linda Quispe R.N. R.N. LAB ORDERS Order Description Priority Entered Acknowledged Collected Completed CBC w Diff Stat Stat 18:47 04/08/2025 19:00 04/08/2025 19:00 04/08/2025 Dung Ruth R.N. Kobe Miller, R.N. D.O. CMP Stat Stat 18:47 04/08/2025 19:00 04/08/2025 19:00 04/08/2025 Dung Ruth R.N. Kobe Miller, RItaN. 1 of 3 Order Sheet D.O. Urinalysis Stat Stat 18:47 04/08/2025 19:00 04/08/2025 19:00 04/08/2025 Dung Ruth R.N. Kobe Miller, R.N. D.O. D-Dimer Stat Stat 18:47 04/08/2025 19:00 04/08/2025 19:00 04/08/2025 Dung Ruth R.N. Kobe Miller, R.N. D.OIta EKG - ED Stat Stat 18:47 04/08/2025 19:00 04/08/2025 19:00 04/08/2025 Dung Ruth R.N. Kobe Miller, R.N. D.OIta Troponin-I Stat Stat 19:32 04/08/2025 19:51 04/08/2025 20:01 04/08/2025 Alvin Aceves Debra Schrock, R.N. R.N. EKG - ED Stat Stat 19:32 04/08/2025 19:51 04/08/2025 20:01 04/08/2025 Alvin Aceves Debra Schrock, R.N. R.N. COVID PCR Stat Stat 19:34 04/08/2025 Cancelled: Duplicate Order Priscilla Acevedo M.D. 19:35 EDT Priscilla Acevedo M.D. Flu Swab (Influenzae Stat 19:34 04/08/2025 19:51 04/08/2025 20:01 04/08/2025 AAg) Stat Alvin Aceves Debra Schrock, R.N. R.N. RSV Stat Stat 19:34 04/08/2025 19:51 04/08/2025 20:01 04/08/2025 Alvin Aceves Debra Schrock, R.N. R.N. Rapid COVID (SARS) Stat 19:35 04/08/2025 19:51 04/08/2025 20:01 04/08/2025 2 of 3 Order Sheet ANTIGEN TEST Stat Alvin Aceves Debra Schrock, R.N. R.N. DIAGNOSTIC STUDY ORDERS Order Description Priority Entered Acknowledged Completed STAFF ORDERS Order Description Priority Entered Acknowledged Collected Completed IV Saline Lock 18:47 04/08/2025 19:00 04/08/2025 19:00 04/08/2025 Dung Ruth R.N. Kobe Miller, R.N. D.O. [Electronically signed by Priscilla Acevedo M.D. (04/08/2025 22:57 EDT)] [Electronically signed by Atilio Rodriguez D.O. (04/11/2025 21:25 EDT)] 3 of 3 Normal [facility] ED PHYSICIAN CLINICAL REPORT on 04-11-2025 ED PHYSICIAN CLINICAL REPORT Narrative Physician Clinical Narrative [facility] [address] [facility] [place] [address] [id number] 04/08/2025 18:39:00 Patient: JIA JENSEN Sex: Female : 1990 Age: 34y Disposition: Discharge to Home Disposition Decision Time: 21:04 04/08/2025 Departure Time: 21:17 04/08/2025 Measurements Wt: 86.2 kg, Ht/Artem: 67.0 in, BMI: 29.76 Initial Vital Sign Measured Time BP MAP HR RR O2Sat ETCO2 Temp Pain GCS RTS 18:43 04/08/2025 128/82 97 63 14 100% 98.6 F 0 Time Seen: 18:36 04/08/2025. Arrived- By private vehicle. Historian- patient. HISTORY OF PRESENT ILLNESS Chief Complaint: DYSPNEA. This started today patient came in stating she felt short of breath. Feels weak and tired she says she is 8 weeks . She had in vitro fertilization. And presents to the emergency department this afternoon. She denies any fevers or chills actually does feel a little chilled but she has always chills she denies any burning with urination. She denies any recent travel trauma or surgery. She denies any nausea or vomiting.. and is still present. No cough, sputum production, fever or chest pain. The patient has had chills and dyspnea on exertion. REVIEW OF SYSTEMS : No difficulty with urination. NEUROLOGICAL: No headache. GI: No nausea or vomiting. NOSE: No nasal discharge. THROAT: No sore throat. EYES: No eye irritation. CONSTITUTIONAL: The patient has not had weight loss. ENDO/HEME/LYMPH: No enlarged lymph nodes. Narrative PAST HISTORY See nurses notes. Hypothyroidism Surgeries: Endoscopy Medications: Ovidrel 250 mcg/0.5 mL subcutaneous syringe: INJECT 1 SYRINGE SUBCUTANEOUSLY WHEN DIRECTED Porcine Thyroid 60 Mg Capsule: TAKE 1 CAPSULE BY MOUTH ONCE DAILY progesterone 50 mg/mL intramuscular oil: INJECT 1 ML INTRAMUSCULARLY ONCE DAILY DIRECTED Allergies: no known drug allergies Home Medications/Allergy Information Source: patient - Daniela Mario R.N., 04/08/2025 18:40 EDT SOCIAL HISTORY Never smoker. No alcohol use. ADDITIONAL NOTES The nursing notes have been reviewed. PHYSICAL EXAM Appearance: Alert. No acute distress. Eyes: Pupils equal, round and reactive to light. Eyes normal inspection. ENT: Ears normal. Nose normal. Neck: Normal inspection. No jugular venous distention. CVS: Normal heart rate. Heart sounds normal. Respiratory: No respiratory distress. Painless inspiration. Breath sounds normal. Abdomen: Soft and nontender. 2 of 31 Narrative Back: Normal inspection. Skin: Skin warm and dry. Normal skin color. Normal skin turgor. Extremities: Extremities exhibit normal ROM. No lower extremity edema. Neuro: Oriented X 3. No motor deficit. LABS, X-RAYS, AND EKG 12-LEAD EKG: EKG time: 18:41 04/08/2025. No acute process. No acute ischemia. Normal EKG. Rate: 53. Bradycardia. Normal QRS complex. Normal axis. Normal ST and T waves. The study has been interpreted contemporaneously. Interpretation time: 18:44 04/08/2025. Laboratory Tests: CBC + DIFF Final ALEXEY: 04/08/2025 18:40:00 EDT MsgRcvd: 04/08/2025 19:08 EDT Lab Test Result Reference Status Received Comments 04/08/2025 19:08 CBC-COMPLETE CBC + DIFF Final EDT BLOOD COUNT 04/08/2025 19:08 WBC 9.7 x 10/UL 4.5 - 10.8 Final EDT 4.05 x 10/UL 04/08/2025 19:08 RBC 4.10 - 5.30 Final Below low normal EDT 04/08/2025 19:08 HEMOGLOBIN 12.8 g/dl 12.0 - 16.0 Final EDT 04/08/2025 19:08 HEMATOCRIT 36.9 % 34.0 - 46.0 Final EDT 04/08/2025 19:08 MCV 91 fl 80 - 99 Final EDT 04/08/2025 19:08 MCH 32 pg 27 - 33 Final EDT 3 of 31 Narrative Lab Test Result Reference Status Received Comments 04/08/2025 19:08 MCHC 35 X10 3 32 - 36 Final EDT 04/08/2025 19:08 RDW/CV 12.9 % 12.0 - 15.6 Final EDT 04/08/2025 19:08 PLATELET 262 x10/UL 150 - 450 Final EDT 04/08/2025 19:08 AUTOMATED MPV 7.9 fl 6.6 - 10.5 Final EDT DIFFERENTIAL 04/08/2025 19:08 NEUT % 63.5 % 46.0 - 76.0 Final EDT 04/08/2025 19:08 LYMPH % 28.7 % 20.0 - 45.0 Final EDT 04/08/2025 19:08 MONOS % 6.8 % 0.0 - 10.0 Final EDT 04/08/2025 19:08 EO % 0.5 % 0.0 - 7.0 Final EDT 04/08/2025 19:08 BASO % 0.5 % 0.0 - 2.0 Final EDT 04/08/2025 19:08 Lymph # 2.77 x10/UL 0.80 - 2.80 Final EDT 04/08/2025 19:08 Neut # 6.13 x10/UL 1.50 - 7.10 Final EDT 04/08/2025 19:08 [place] # 0.66 x10/UL 0.20 - 1.00 Final EDT 04/08/2025 19:08 EO # 0.05 x10/UL 0.00 - 0.50 Final EDT 4 of 31 Narrative Lab Test Result Reference Status Received Comments 04/08/2025 19:08 Baso # 0.05 x10/UL 0.00 - 0.10 Final EDT 04/08/2025 19:08 MANUAL DIFF N/A New Order EDT 04/08/2025 19:08 MORPHOLOGY N/A New Order EDT CMP with eGFR Final ALEXEY: 04/08/2025 18:40:00 EDT MsgRcvd: 04/08/2025 1 (more content not included)... Normal [facility] ED SUPER BILLon 04-11-2025 ED SUPER BILL [address] [address] [id number] 04/08/2025 Patient: JIA JENSEN Sex: Female : 1990 Age: 34y Item Facility Professional Category Description Code Code Quantity Fee Total Drugs Normal Saline 188149 1 $0.00 $0.00 1000cc (707711) Nurse/E/M EMERGENCY 193513 1 $0.00 $0.00 DEPARTMENT VISIT HIGH/URGENT SEVERITY (20700-70) Nurse/IV/IM/Infusio ns Hydration initial 039051 1 $0.00 $0.00 (87005) Grand Total $0.00 Providers Eric Ruth M.D. Chief Complaint DYSPNEA. 1 of 2 [facility] Principal Diagnosis 2 of 2 [facility] ED VISIT SUMMARYon ED VISIT SUMMARY Visit Overview Visit Overview [address] [address] [id number] 04/08/2025 Patient: JIA JENSEN Sex: Female : 1990 Age: 34y 04/11/2025 09:25 PM EDT ED Arrival:18:39 04/08/2025 EDT Status: Recent Travel:no Language:eng Adv Directive: Isolation Status: Ethnicity:N Fall Risk:no risk Infectious Disease Exposure:no Measurements:5'7 / 170.2 Self-Harm Status:risk Sepsis Screen:negative cm 190.0 lb / 86.2 kg Chief Complaint:SHORTNESS OF BREATH and (NONE/ RSI [place]ol[place]) ALLERGIES No Known Drug Allergies HOME MEDICATIONS Ovidrel 250 mcg/0.5 mL subcutaneous syringe: INJECT 1 SYRINGE SUBCUTANEOUSLY WHEN DIRECTED Porcine Thyroid 60 Mg Capsule: TAKE 1 CAPSULE BY MOUTH ONCE DAILY progesterone 50 mg/mL intramuscular oil: INJECT 1 ML INTRAMUSCULARLY ONCE DAILY DIRECTED 1 of 3 Visit Overview PAST MEDICAL HISTORY / PROBLEMS Hypothyroidism Immunizations: status is unknown. Immunizations not up to date LNMP: Last normal menstrual period unknown. 4. Para 2. Abortions 1 status: currently : EDC:2025 8 weeks See nurses notes PAST SURGICAL HISTORY Endoscopy SOCIAL HISTORY Smoking status: No Alcohol use: No Drug use: No ED COURSE MEDICATIONS GIVEN IN EMERGENCY DEPARTMENT 18:59 04/08/25 IV NS 0.9 % 1000 mL 500 mL/hr 19:54 04/08/25 Potassium Chloride PO 40 mEq IV SITE INFORMATION INTAKE OUTPUT REASSESMENT (most recent) 21:14 04/08/25. The patient reports no complaints and the patient is calm and resting quietly. ED physician at the patient's bedside (21:13 04/08/2025). VITAL SIGNS First Vitals Last Vitals Temp 18:43 04/08/25 98.6 F Temp 21:03 04/08/25 BP 18:43 04/08/25 128/82 BP 21:03 04/08/25 123/69 HR 18:43 04/08/25 63 HR 21:03 04/08/25 68 2 of 3 Visit Overview First Vitals Last Vitals RR 18:43 04/08/25 14 RR 21:03 04/08/25 16 O2 Sat 18:43 04/08/25 100% O2 Sat 21:03 04/08/25 99% RA Pain 18:43 04/08/25 0 Pain 21:03 04/08/25 ETCO2 18:43 04/08/25 ETCO2 21:03 04/08/25 GCS 18:43 04/08/25 GCS 21:03 04/08/25 RTS 18:43 04/08/25 RTS 21:03 04/08/25 PROCEDURES NURSING INTERVENTIONS LABS / STUDIES LABS / STUDIES ORDERED CBC w Diff CMP D-Dimer EKG - ED EKG - ED Flu Swab (Influenzae AAg) Rapid COVID (SARS) ANTIGEN TEST RSV Troponin-I Urinalysis LABS / STUDIES PENDING IMPORT [id number] PRB - ISMAEL CLINICAL IMPRESSION POSSIBLE ACUTE DYSPNEA POSSIBLE ACUTE VIRAL BRONCHITIS.NO VIRAL (RSV) OR VIRAL (INFLUENZA) BRONCHITIS POSSIBLE ACUTE VIRAL SYNDROME 3 of 3 Normal [facility] ED VITALS FLOW SHEETon 04-11 ED VITALS FLOW SHEET Vitals Vital Sign Flow Sheet [address] [place] [address] [id number] 04/08/2025 [id number] Sex[facility] Female : 1990 Age: 34y Measurements Wt: 86.2 kg, Ht/Artem: 67.0 in, BMI: 29.76 Measured Time BP MAP HR RR O2Sat ETCO2 Temp Pain GCS RTS 21:03 04/08/2025 123/69 87 68 16 99% RA 20:48 04/08/2025 113/61 78 58 16 100% RA 20:34 04/08/2025 116/60 79 70 12 100% RA 18:43 04/08/2025 128/82 97 63 14 100% 98.6 F 0 1 of 1 Normal [facility] CVFLURVon 04-09-2025 FLU A PCR Negative Normal Negative [facility] Comment on above: Result Comment: [place] [id number] Performed By: #### C VFLURV #### [place] [address] FLU B PCR Negative Normal Negative [facility] Comment on above: Result Comment: [place] [id number] Performed By: #### C VFLURV #### [place] [address] RSV PCR Negative Normal Negative [facility] Comment on above: Result Comment: [place] [address] Performed By: #### C VFLURV #### [place] [address] SARS-CoV-2 (COVID-19) RNA MARGARITO+probe Ql (Unsp spec) Negative Normal Negative [facility] Comment on above: Result Comment: [place] [phone] Results from the Xpert Xpress SARS-CoV-2/Flu/RSV or Xpert Xpress SARS-CoV-2 only test should be correlated with the clinical history, epidemiological data, and other data available to the clinician evaluating the patient. Performance of the Xpert Xpress SARS-CoV-2/Flu/RSV or Xpert Xpress SARS-CoV-2 only test has only been established in nasopharyngeal swab specimens. Erroneous test results might occur from improper specimen collection; failure to follow the recommended sample collection, handling, and storage procedures; technical error; or sample mix-up.False negative results may occur if virus is present at levels below the analytical limit of detection. Viral nucleic acid may persist in vivo, independent of virus viability. Detection of analyte target(s) does not imply that the corresponding virus(es) are infectious or are the causative agents for clinical symptoms.Recent patient exposure to FluMist or other live attenuated influenza vaccines may cause inaccurate positive results. FDA Approved. Performed By: #### C VFLURV #### [facility] [address] [place] [address] CBC + DIFFon 04-08-2025 Baso # 0.05 x10EE3/UL Normal 0.00 - 0.10 [facility] Comment on above: Performed By: #### 2 98706 #### [facility],[address] [place] [address] Basophils/100 WBC (Bld) 0.5 % Normal 0.0 - 2.0 [facility] Comment on above: Performed By: #### 2 46215 #### [facility],[address] [place] [address] CBC + DIFF Normal [facility] Comment on above: Result Comment: CBC- COMPLETE BLOOD COUNT Performed By: #### 2 01878 #### [facility],[address] [place] [address] EO # 0.05 x10EE3/UL Normal 0.00 - 0.50 [facility] Comment on above: Performed By: #### 2 16868 #### [facility],[address] [place] [address] Eosinophils/100 WBC (Bld) 0.5 % Normal 0.0 - 7.0 [facility] Comment on above: Performed By: #### 2 28164 #### [facility],[address] [place] [address] Erythrocyte distribution width (RBC) [Ratio] 12.9 % Normal 12.0 - 15.6 [facility] Comment on above: Performed By: #### 2 13659 #### [facility],[address] [place] [address] Hematocrit (Bld) [Volume fraction] 36.9 % Normal 34.0 - 46.0 [facility] Comment on above: Performed By: #### 2 79990 #### [facility],[address] [place] [address] Hemoglobin (Bld) [Mass/Vol] 12.8 g/dL Normal 12.0 - 16.0 [facility] Comment on above: Performed By: #### 2 13754 #### [facility],[address] [place] [address] Lymph # 2.77 x10EE3/UL Normal 0.80 - 2.80 [facility] Comment on above: Performed By: #### 2 07465 #### [facility],[address] [place] [address] Lymphocytes/100 WBC (Bld) 28.7 % Normal 20.0 - 45.0 [facility] Comment on above: Performed By: #### 2 93700 #### [facility],[address] [place] [address] MANUAL DIFF N/A Normal [facility] Comment on above: Performed By: #### 2 78939 #### [facility],[address] [place] [address] MCH (RBC) [Entitic mass] 32 pg Normal 27 - 33 [facility] Comment on above: Performed By: #### 2 71802 #### [facility],[address] [place] [address] MCHC 35 X10 3 Normal 32 - 36 [facility] Comment on above: Performed By: #### 2 25382 #### [facility],[address] [place] [address] MCV (RBC) [Entitic vol] 91 fL Normal 80 - 99 [facility] Comment on above: Performed By: #### 2 56823 #### [facility],[address] [place] [address] [place] # 0.66 x10EE3/UL Normal 0.20 - 1.00 [facility] Comment on above: Performed By: #### 2 82472 #### [facility],[address] [place] [address] MONOS % 6.8 % Normal 0.0 - 10.0 [facility] Comment on above: Performed By: #### 2 34183 #### [facility],[address] [place] [address] Morphology Fausto (Bld) [Interp] N/A Normal [facility] Comment on above: Performed By: #### 2 16793 #### [facility],[address] [place] [address] Neut # 6.13 x10EE3/UL Normal 1.50 - 7.10 [facility] Comment on above: Performed By: #### 2 85493 #### [place] [address] Neutrophils/100 WBC (Bld) 63.5 % Normal 46.0 - 76.0 [facility] Comment on above: Performed By: #### 2 09553 #### [facility],[address] [place] [address] PLATELET 262 x10EE3/UL Normal 150 - 450 [facility] Comment on above: Performed By: #### 2 01638 #### [facility],[address] [place] [address] Platelet mean volume (Bld) [Entitic vol] 7.9 fL Normal 6.6 - 10.5 [facility] Comment on above: Result Comment: AUTO MATED DIFFERENTIAL Performed By: #### 2 08665 #### [place] [address] RBC 4.05 x 10EE6/UL Low 4.10 - 5.30 [facility] Comment on above: Performed By: #### 2 27767 #### [facility],[address],[place] [address] WBC 9.7 x 10EE3/UL Normal 4.5 - 10.8 [facility] Comment on above: Performed By: #### 2 34197 #### [facility],[address] [place] [address] CMP with eGFRon 04-08-2025 AGE 34 years Normal [facility] Comment on above: Performed By: #### 2 17844 #### [facility],[address] [place] [address] Albumin [Mass/Vol] 3.6 g/dL Normal 3.4 - 5.0 [facility] Comment on above: Performed By: #### 2 35420 #### [facility],[address] [place] [address] Albumin/Globulin [Mass ratio] 1.0 {ratio} Normal 0.9 - 1.6 [facility] Comment on above: Performed By: #### 2 25172 #### [facility],[address] [place] [address] ALK PHOS 71 U/L Normal 46 - 116 [facility] Comment on above: Performed By: #### 2 51138 #### [facility],[address] [place] [address]65 ALT [Catalytic activity/Vol] 23 U/L Normal 16 - 63 [facility] Comment on above: Performed By: #### 2 45396 #### [facility],[address] [place] [address] Anion gap [Moles/Vol] 10 mmol/L Normal 10 - 20 [facility] Comment on above: Performed By: #### 2 04751 #### [facility],[address] [place] [address] AST [Catalytic activity/Vol] 10 U/L Low 13 - 39 [facility] Comment on above: Performed By: #### 2 01888 #### [facility],[address] [place] [address] B/C RATIO 25 ratio Normal 0 - 30 [facility] Comment on above: Performed By: #### 2 10535 #### [facility],[address] [place] [address] Bilirubin [Mass/Vol] 0.2 mg/dL Normal 0.2 - 1.0 [facility] Comment on above: Performed By: #### 2 98895 #### [facility],[address] [place] [address] Calcium [Mass/Vol] 8.8 mg/dL Normal 8.5 - 10.1 [facility] Comment on above: Performed By: #### 2 91111 #### [facility],[address] [place] [address]689 Chloride [Moles/Vol] 101 mmol/L Normal 98 - 107 [facility] Comment on above: Performed By: #### 2 90477 #### [facility],[address] [place] [address] CMP with eGFR Normal [facility] Comment on above: Result Comment: COMP REHENSIVE METABOLIC PANEL Performed By: #### 2 04681 #### [facility],[address] [place] [address]391 CO2 [Moles/Vol] 27.7 mmol/L Normal 21.0 - 32.0 [facility] Comment on above: Performed By: #### 2 84528 #### [facility],[address] [place] [address] Creatinine [Mass/Vol] 0.64 mg/dL Normal 0.55 - 1.02 [facility] Comment on above: Performed By: #### 2 82379 #### [facility],[address] [place] [address] GFR/1.73 sq M.predicted among non-blacks MDRD (S/P/Bld) [Vol rate/Area] mL/min/{1.73_m2} Normal 60 - 999 [facility] Comment on above: Performed By: #### 2 10553 #### [facility],[address] [place] [address]5560 Result Comment: ACCO RDING TO THE NATIONAL KIDNEY DISEASE EDUCATION PROGRAM(NKDE), A NORMAL eGFR IS A VALUE GREATER THAN OR EQUAL TO 60 ML/MIN/1.73 SQ METERS. CHRONIC KIDNEY DISEASE: <60mL/MIN/1.73 SQ METERS KIDNEY FAILURE: <15mL/MIN/1.73 SQ METERS THIS TEST SHOULD ONLY BE USED FOR PATIENTS 18 YEARS OF AGE AND OLDER. Globulin (S) [Mass/Vol] 3.6 g/dL Normal 1.5 - 3.8 [facility] Comment on above: Performed By: #### 2 41639 #### [facility],[address] [place] [address]15[address] Glucose [Mass/Vol] 84 mg/dL Normal 74 - 106 [facility] Comment on above: Performed By: #### 2 62744 #### [facility],[address] [place] [address] Potassium [Moles/Vol] 3.3 mmol/L Low 3.5 - 5.1 [facility] Comment on above: Performed By: #### 2 72127 #### [facility],[address] [place] [address]170 Protein [Mass/Vol] 7.2 g/dL Normal 6.4 - 8.2 [facility] Comment on above: Performed By: #### 2 39554 #### [facility],[address] [place] [address] 49727 Sodium [Moles/Vol] 135 mmol/L Low 136 - 145 [facility] Comment on above: Performed By: #### 2 63492 #### [facility],[address] [place] [address]366 Urea nitrogen [Mass/Vol] 16 mg/dL Normal 7 - 18 [facility] Comment on above: Performed By: #### 2 90410 #### [facility],[address] [place] [address],[facility] [address] CORONAVIRUS (SARS) ANTIGEN T Marbin 04-08-2025 EXTERNAL QC DONE? YES Normal [facility] Comment on above: Performed By: #### 2 16711 ####[facility],[address] [place] [address],[facility] [address] INTERNAL CONTROL PASS Normal [facility] Comment on above: Performed By: #### 2 27456 ####[facility],[address] [place] [address],[place] [address] SARS ANTIGEN Negative Normal NORMAL: NEGATIVE [facility] Comment on above: Performed By: #### 2 58366 ####[facility],[address] [place] [address],[facility] [address] SEND TO ? NO Normal [facility] Comment on above: Result Comment: SARS -CoV-2 THIS TEST IS BEING USED UNDER THE FDA EUA PROCEDURE. THIS ASSAY HAS BEEN VALIDATED AT [facility] FOR USE WITH NASAL AND NASOPHARYNGEAL SWAB SPECIMENS. INTERPRETIVE DATA TEST RESULTS SHOULD ALWAYS BE CONSIDERED IN THE CONTEXT OF CLINICAL OBSERVATIONS AND EPIDEMIOLOGICAL DATA IN MAKING FINAL DIAGNOSIS AND PATIENT MANAGEMENT DECISIONS. PATIENT MANAGEMENT SHOULD FOLLOW CURRENT CDC GUIDELINES. THE SRIRAM SARS ANTIGEN SARAH DOES NOT DIFFERENTIATE BETWEEN SARS-CoV & SARS-CoV-2. A POSITIVE TEST RESULT INDICATES THE PRESENCE OF SARS-CoV-2 NUCLEOCAPSID PROTEIN ANTIGEN, AND THE PATIENT IS INFECTED WITH THE VIRUS AND PRESUMED TO BE CONTAGIOUS. A NEGATIVE TEST RESULT FOR THIS TEST MEANS THAT SARS-CoV-2 NUCLEOCAPSID PROTEIN ANTIGEN WAS NOT PRESENT IN THE SPECIMEN ABOVE THE LIMIT OF DETECTION. HOWEVER, A NEGATIVE RESULT DOES NOT RULE OUT COVID-19 AND SHOULD NOT BE USED THE SOLE BASIS FOR TREATMENT OR PATIENT MANAGEMENT DECISIONS. A NEGATIVE RESULT DOES NOT EXCLUDE THE POSSIBILITY OF COVID-19. NEGATIVE RESULTS, FROM PATIENTS WITH SYMPTOM ONSET BEYOND FIVE DAYS, SHOULD BE TREATED PRESUMPTIVE AND CONFIRMATION WITH A MOLECULAR ASSAY, IF NECESSARY, FOR PATIENT MANAGEMENT, MAY BE PERFORMED. WHEN DIAGNOSTIC TESTING IS NEGATIVE, THE POSSIBLILTY OF A FALSE NEGATIVE RESULT SHOULD BE CONSIDERED IN THE CONTEXT OF A PATIENT'S RECENT EXPOSURES AND THE PRESENCE OF CLINICAL SIGNS AND SYMPTOMS CONSISTENT WITH COVID-19. THE POSSIBILITY OF A FALSE NEGATIVE RESULT SHOULD ESPECIALLY BE CONSIDERED IF THE PATIENT'S RECENT EXPOSURES OR CLINICAL PRESENTATION INDICATE THAT COVID-19 IS LIKELY, AND DIAGNOSTIC TESTS FOR OTHER CAUSES OF ILLNESS (e.g., OTHER RESPIRATORY ILLNESS) ARE NEGATIVE. IF COVID-19 IS STILL SUSPECTED BASED ON EXPOSURE HISTORY TOGETHER WITH OTHER CLINICAL FINDINGS, RE-TESTING SHOULD BE CONSIDERED BY HEALTHCARE PROVIDERS IN CONSULTATION WITH PUBLIC HEALTH AUTHORITIES. Performed By: #### 2 97413 ####[facility],[address] [place] [address]12 D-DIMER, QUANTITATIVEon 06- D-DIMER QUANT <200 Normal 0 - 230 [facility] Comment on above: Performed By: #### 2 02538 #### [facility],[address] [place] [address] 26657 D-DIMER, QUANTITATIVE Normal [facility] Comment on above: Result Comment: CAMERON T D-DIMER Performed By: #### 2 32777 #### [facility],[address] [place], [place] [id number] INFLUENZA VIRUS RAPID A/Bon 04-08-2025 INFLUENZA VIRUS RAPID A/B INFLUENZA A NEGATIVE INFLUENZA B NEGATIVE INTERNAL NEG QC PASS INTERNAL POS QC PASS EXTERNAL QC DONE? YES SEND TO IC? NO A NEGATIVE TEST RESULT DOES NOT EXCLUDE INFECTION WITH INFLUENZA A OR B. THEREFORE, THE RESULTS OBTAINED FROM THIS FLU TEST SHOULD BE USED IN CONJUCTION WITH CLINICAL FINDINGS TO MAKE AN ACCURATE DIAGNOSIS. A POSITIVE RESULT DOES NOT RULE OUT CO-INFECTIONS WITH OTHER PATHOGENS OR IDENTIFY ANY SPECIFIC INFLUENZA A VIRUS SUBTYPE.CO-INFECTIO N WITH INFLUENZA A AND B IS RARE. IT IS RECOMMENDED THAT DUAL POSITIVE RESULTS BE CONFIRMED BY VIRAL CULTURE OR AN FDA-CLEARED INFLUENZA A AND B MOLECULAR ASSAY. INDIVIDUALS WHO HAVE RECEIVED NASALLY ADMINISTERED INFLUENZA A VACCINE MAY TEST POSITIVE IN COMMERCIALLY AVAILABLE INFLUENZA RAPID DIAGNOSTIC TESTS FOR UP TO THREE DAYS. RESULT CRITICAL? NO Normal [facility] Comment on above: Performed By: #### 2 94828 ####[facility],[address] [place] [address] 92414 RSVon 04-08-2025 RSV RSV NEGATIVE INTERNAL NEG QC PASS INTERNAL POS QC PASS EXTERNAL QC DONE? YES THIS TESTS IS INTENDED FOR IN VITRO DIAGNOSTIC USE TO AID IN THE DIAGNOSIS OF RESPIRATORY SYNCTYIAL VIRUS INFECTIONS IN AND PEDIATRIC PATIENTS UNDER THE AGE OF 5. IT IS RECOMMENDED THAT NEGATIVE TEST RESULTS BE CONFIRMED BY CELL CULTURE. Normal [facility] Comment on above: Performed By: #### 2 69472 #### [facility],[address] [place] [address] 67704 TROPONINon 04-08-2025 HS TROPONIN <4.0 Normal 0.0 - 51.4 [facility] Comment on above: Performed By: #### 2 91336 #### [facility],[address] [place], [place] [id number] URINALYSISon 04-08-2025 Amorphous NONE Normal [facility] Comment on above: Performed By: #### 2 22154 ####[facility],[address] [place], [place] [id number] Bacteria NONE Normal [facility] Comment on above: Performed By: #### 2 00954 ####[facility],[address] [place], [place] [id number] Bilirubin Ql (U) Negative Normal NORMAL: NEGATIVE [facility] Comment on above: Performed By: #### 2 49124 ####[facility],[address] [place], [place] [id number] Casts NONE Normal [facility] Comment on above: Performed By: #### 2 37701 ####[facility],[address] [place], [place] [id number] Clarity (U) clear Normal NORMAL: CLEAR [facility] Comment on above: Performed By: #### 2 83283 ####[facility],[address] [place] [address] 84042 Color (U) p.yel Normal NORMAL: YELLOW [facility] Comment on above: Performed By: #### 2 91984 ####[facility],[address] [place] [address] 82315 Crystals LM Nom (Urine sed) NONE Normal [facility] Comment on above: Performed By: #### 2 22562 ####[facility],[address] [place] [address] 94313 Epi Cells MODERATE Normal [facility] Comment on above: Performed By: #### 2 97271 ####[facility],[address] [place] [address] 58259 Glucose Ql (U) NORM Normal NORMAL: NORMAL [facility] Comment on above: Performed By: #### 2 68411 ####[facility],[address] [place] [address] 92520 Hemoglobin Ql (U) Negative Normal NORMAL: NEGATIVE [facility] Comment on above: Performed By: #### 2 86536 ####[facility],[address] [place] [address] 63301 Ketone Negative Normal NORMAL: NEGATIVE [facility] Comment on above: Performed By: #### 2 53836 ####[facility],[address] [place] [address] 99236 Leukocytes 25 Abnormal NORMAL: NEGATIVE [facility] Comment on above: Performed By: #### 2 62190 ####[facility],[address] [place] [address] 40979 Mucous 1+ Normal [facility] Comment on above: Performed By: #### 2 92315 ####[facility],[address] [place] [address] 33293 Nitrite Ql (U) Negative Normal NORMAL: NEGATIVE [facility] Comment on above: Performed By: #### 2 42406 ####[facility],[address] [place] [address] 84676 pH (U) 7 [pH] Normal NORMAL: 5.0-8.0 [facility] Comment on above: Performed By: #### 2 91289 ####[facility],[address] [place] [address] 80836 Protein Ql (U) Negative Normal NORMAL: NEGATIVE [facility] Comment on above: Performed By: #### 2 67963 ####[facility],[address] [place] [address] 42483 Rbc 0-5 Normal 0-3/hpf [facility] Comment on above: Performed By: #### 2 18847 ####[facility],[address] [place] [address] Sp [place] 1.010 Normal NORMAL: 1.010-1.030 [facility] Comment on above: Performed By: #### 2 38828 ####[facility],[address] [place] [address] Specimen Type R Normal [facility] Comment on above: Performed By: #### 2 45557 ####[facility],[address] [place] [address] Urinalysis dipstick W Reflex Microscopic panel (U) SEE BELOW Normal [facility] Comment on above: Result Comment: MICR OSCOPIC Performed By: #### 2 19230 ####[facility],[address] [place] [address] Urobilinog NORM Normal NORMAL: NORMAL [facility] Comment on above: Performed By: #### 2 99755 ####[facility],[address] [place], [place] [id number] Wbc 1-5 Normal 0-5/hpf [facility] Comment on above: Performed By: #### 2 33532 ####[facility],[address] [place], [place] [id number] Yeast NONE Normal [facility] Comment on above: Performed By: #### 2 44361 ####[facility] [facility],[address] [place] [address] US PELVIS NON-OB W/TRANSVAGI NALon 09-10-2024 US PELVIS NON-OB W/TRANSVAGINAL ORIGINAL EXAMINATION: TRANSABDOMINAL AND TRANSVAGINAL PELVIC [id number] 4:25 pm US PELVIS NON-OB TRANSABDOMINAL AND TRANSVAGINAL TECHNIQUE: Transabdominal and transvaginal pelvic ultrasound was performed. This report is based on interpretation of permanently recorded ultrasound images. COMPARISON: None HISTORY: ORDERING SYSTEM PROVIDED HISTORY: Reason for Exam: Excessive bleeding in the premenopausal period FINDINGS: The anteverted uterus is 8.7 x 4.8 x 6.0 cm and has normal echotexture. No myometrial mass is seen. The endometrial double wall thickness is 11.3 mm including 0.2 cm of fluid in the endometrial canal. This is still within normal limits for a premenopausal female. The ovaries are normal in echogenicity. The RIGHT and LEFT ovaries measure 2.7 x 2.0 x 3.8 cm and 3.2 x 3.4 x 1.9 cm respectively. There is blood flow to both ovaries. There is a cystic lesion in the right ovary measuring 1.8 x 2.0 x 2.3 cm with a diffuse thick wall and a small amount of peripheral vascularity, possibly a corpus luteal cyst. A small amount of cul-de-sac fluid is considered physiologic. IMPRESSION: No definite cause for the patient's symptoms identified. Suspect a corpus luteal cyst in the right ovary. If there is continued clinical concern, consider follow-up ultrasound as indicated. I have personally reviewed the images of this examination and agree with the resident's findings and interpretation. Interpreted by: Jose Carlos Shepard DO Preliminary Report By: Sofy Cronin Electronically signed By Jose Carlos Shepard DO Dictated Date: 09/10/2024 2:58:15 PM Prelim Date: 09/10/2024 3:46:10 PM Sign Date: 09/10/2024 3:46:10 PM Ordering Provider: SHAHBAZ EMMANUEL Normal [facility] FT3on 03-27-2024 Free T3 [Mass/Vol] 2.96 pg/mL Normal 2.30-4.00 [facility] ([place]) Comment on above: Performed By: #### F T4, TSH, FT3 #### [id number] [place], [place] [address] FT4on 03-27-2024 Free T4 [Mass/Vol] 0.78 ng/dL Normal 0.76-1.46 [facility] ([place]) Comment on above: Performed By: #### F T4, TSH, FT3 #### [place] [address] [place], [place] [address] LABORATORYOrdered By: SYSTEM SYSTEM on 03-27-2024 Free T3 [Mass/Vol] 2.96 pg/mL Normal 2.30 - 4. 00 pg/mL AO ADM SS Free T4 [Mass/Vol] 0.78 ng/dL Normal 0.76 - 1. 46 ng/dL AO ADM SS TSH Qn 1.00 m[IU]/L Normal 0.36 - 3.74 mcIU/mL AO ADM SS TSHon 03-27-2024 TSH Qn 1.00 m[IU]/L Normal 0.36-3.74 [facility] ([place]) Comment on above: Performed By: #### F T4, TSH, FT3 #### [address] [place], [place] [address] [facility] [address] [place] [id number] OFFICE VISIT Date of Service: 05/21/23 MR#: [id number] Acct: [id number] Name: JIA JENSEN Rep #: [id number] : 1990 Provider: Priscila Rivas NP Age/Sex: 33/F Location: [facility] [place] Status: Signed Intake Vital Signs 03/26/23 01:29 Height 5 ft 7 in Intake Visit Reasons: assessment Chief Complaint: assessment Accompanied by: Allergies fentanyl Adverse Reaction (Verified 03/26/23 01:34) Other : Yes PFSH PFSH Medical History Painless rectal bleeding Surgical History S/P LASIK surgery of both eyes Family History Mother Arthritis Depression Osteoarthritis Osteoporosis Social History household members: spouse Smoking Status: Never smoker alcohol intake: current alcohol intake frequency: a few times a month HPI HPI HPI: JIA JENSEN, is a 33 F who presents to the office today for assessment. History provided by the patient. ROS ROS Const Constitutional: Denies fever(s) or lethargy : Denies nipple discharge Skin Skin/Breast: Denies breast pain, breast skin changes or nipple discharge Details: q 3 hours, 15 minutes per side, unsure if milk starting to come in, having some nipple discomfort, worse at the beginning of the feed but improves as the feed continues Exam Maternal Assessment Breast Assessment Bilateral Breasts: Soft Nipple Assessment Bilateral Nipples: Everted Areolar Tissue Areolar Tissue: Pliable Assessment Baby Feeding History Is your baby latching onto the breast: Yes Number of Breast Feedings in 24 hours: 8 Minutes per breast: First Breast: 15 Minutes per breast: Second Breast: 15 Supplements Supplement Type:: None Breast Pumping Type of Breast Pump: Zomee, Motif Shweta, Haakaa Frequency: has not started pumping Goals Breast Feeding Goals: Exclusive Exam Const General: comfortable and no acute distress Orientation: alert and oriented x3 Chest Breast inspection: normal inspection of the breasts Breast palpation: normal palpation of the breasts Resp Effort Inspection: normal respiratory effort Skin General: no rashes or lesions noted Psych Appearance: grossly normal Mental Status: mental status grossly normal Affect: normal affect Assessment and Plan Assessment and Plan (1) Care and examination of lactating mother: Plan: Patient concerned milk is not in, reassurance provided milk coming in day 3-5. Educated on feeding on demand, skin to skin. Will start haakaa, hand expressing and can pump as needed to offer additional supplement to baby until milk comes in. Fitted for correct flange size in office. Recommended nipple cream after every feed. Follow up with PRN. Coding Level of Care Code 89975 PRVT COUNSELING INDIVID Diagnoses Care and examination of lactating mother Z39.1 Time Spent (min) 30 05/23/23 0614 Date Priscila Rivas NP [employer] CHIEF-C Cosigner Signature: Date (if applicable) CC: Normal [facility] RPRon 05-21-2023 Reagin Ab RPR Ql (S) Non-Reactive Normal Non-Reactive [facility] ([place]) Comment on above: Result Comment: The RPR test is a non-treponemal assay useful as an aid in the diagnosis of primary and secondary syphilis. It converts to positive generally within 2 weeks after the appearance of a lesion. This test is also useful for monitoring response to antibiotic therapy. A positive RPR screening test will be followed by the FTA ABS test. False positive RPR tests may occur in 1) patients with underlying autoimmune disorders, 2) elderly patients, 3) , and 4) other conditions with abnormal serum globulins. Performed By: #### R OK #### [place] [address] #### ADIFF, CBC, ANSG, ANEU, ABOG #### [address] [address] HHon 05-20-2023 Hematocrit (Bld) [Volume fraction] 33.8 % Low 37.0-47.0 [facility] ([place]) Comment on above: Performed By: #### H H #### [place] [address] Hgb 11.4 G/dL Low 12.0-16.0 [facility] ([place]) Comment on above: Performed By: #### H H #### [place] [address] LABORATORYOrdered By: SYSTEM SYSTEM on 05-20-2023 Hematocrit (Bld) [Volume fraction] 33.8 % Invalid Interpretation Code 37.0 - 47.0 % AO Workflow SS Hemoglobin (Bld) [Mass/Vol] 11.4 G/dL Invalid Interpretation Code 12.0 - 16.0 G/dL AO Workflow SS .Auto Diffon 05-19-2023 Basophil, Absolute 0.0 10 3/mcL Normal 0.0-0.2 [facility] ([place]) Comment on above: Performed By: #### R OK #### [place] [address] #### ADIFF, CBC, ANSG, ANEU, ABOG #### [address] [address] Basophils/100 WBC (Bld) 0.2 % Normal 0.0-2.5 [facility] ([place]) Comment on above: Performed By: #### R OK #### [place] [address] #### ADIFF, CBC, ANSG, ANEU, ABOG #### [address] [address] Eosinophil, Absolute 0.0 10 3/mcL Normal 0.0-0.4 [facility] ([place]) Comment on above: Performed By: #### R OK #### [place] [address] #### ADIFF, CBC, ANSG, ANEU, ABOG #### [address] [address] Eosinophils/100 WBC (Bld) 0.1 % Normal 0.0-7.0 [facility] ([place]) Comment on above: Performed By: #### R OK #### [place] [address] #### ADIFF, CBC, ANSG, ANEU, ABOG #### [address] [address] Lymphocyte, Absolute 1.5 10 3/mcL Normal 0.8-3.9 [facility] ([place]) Comment on above: Performed By: #### R OK #### [place] [address] #### ADIFF, CBC, ANSG, ANEU, ABOG #### [address] [address] Lymphocytes/100 WBC (Bld) 13.1 % Normal 10.0-50.0 [facility] ([place]) Comment on above: Performed By: #### R OK #### [place] [address] #### ADIFF, CBC, ANSG, ANEU, ABOG #### [address] [address] Monocyte, Absolute 0.6 10 3/mcL Normal 0.2-1.0 [facility] ([place]) Comment on above: Performed By: #### R OK #### [place] [address] #### ADIFF, CBC, ANSG, ANEU, ABOG #### [address] [address] Monocytes/100 WBC (Bld) 5.7 % Normal 1.7-13.0 [facility] ([place] Comment on above: Performed By: #### R OK #### [place] [address] #### ADIFF, CBC, ANSG, ANEU, ABOG #### [address] [address] Neutrophils/100 WBC (Bld) 80.9 % High 37.0-80.0 [facility] ([place]) Comment on above: Performed By: #### R OK #### [place] [address] #### ADIFF, CBC, ANSG, ANEU, ABOG #### [address] [address] .NEUABSon 05-19-2023 Neutrophil, Absolute 9.1 10 3/mcL High 2.9-6.2 [facility] ([place]) Comment on above: Performed By: #### R OK #### [place] [address] #### ADIFF, CBC, ANSG, ANEU, ABOG #### [address] [address] CBCon 05-19-2023 Erythrocyte distribution width (RBC) [Ratio] 12.9 % Normal 11.5-14.5 [facility] ([place] Comment on above: Performed By: #### R OK #### [place] [address] #### ADIFF, CBC, ANSG, ANEU, ABOG #### [address] [address] Hematocrit (Bld) [Volume fraction] 38.2 % Normal 37.0-47.0 [facility] ([place] Comment on above: Performed By: #### R OK #### [place] [address] #### ADIFF, CBC, ANSG, ANEU, ABOG #### [address] [address] Hgb 12.7 G/dL Normal 12.0-16.0 [facility] ([place] Comment on above: Performed By: #### R OK #### [place] [address] #### ADIFF, CBC, ANSG, ANEU, ABOG #### [address] [address] MCH (RBC) [Entitic mass] 30.8 pg Normal 27.0-31.2 [facility] ([place] Comment on above: Performed By: #### R OK #### [place] [address] #### ADIFF, CBC, ANSG, ANEU, ABOG #### [address] [address] MCHC 33.3 G/dL Normal 33.0-37.0 [facility] ([place] Comment on above: Performed By: #### R OK #### [place] [address] #### ADIFF, CBC, ANSG, ANEU, ABOG #### [address] [address] MCV (RBC) [Entitic vol] 92.5 fL Normal 80.0-94.0 [facility] ([place] Comment on above: Performed By: #### R OK #### [place] [address] #### ADIFF, CBC, ANSG, ANEU, ABOG #### [address] [address] Platelet 182 10 3/mcL Normal 130-400 [facility] ([place]) Comment on above: Performed By: #### R OK #### [place] [address] #### ADIFF, CBC, ANSG, ANEU, ABOG #### [address] [address] Platelet mean volume (Bld) [Entitic vol] 9.7 fL Normal 7.4-10.4 [facility] ([place] Comment on above: Performed By: #### R OK #### [place] [address] #### ADIFF, CBC, ANSG, ANEU, ABOG #### [address] [address] RBC 4.13 10 6/mcL Low 4.20-5.40 [facility] [place] Comment on above: Performed By: #### R OK #### [place] [address] #### ADIFF, CBC, ANSG, ANEU, ABOG #### [address] [address] WBC 11.2 10 3/mcL High 4.6-10.8 [facility] [place] Comment on above: Performed By: #### R OK #### [place] [address] #### ADIFF, CBC, ANSG, ANEU, ABOG #### [address] [address] Gel ABOon 05-19-2023 ABO/Rh Interp Positive Invalid Interpretation Code [facility] ([place] Comment on above: Performed By: #### R OK #### [place] [address] #### ADIFF, CBC, ANSG, ANEU, ABOG #### [address] [address] Gel ABSon 05-19-2023 Antibody Screen Gel Negative Normal [facility] ([place]) Comment on above: Performed By: #### R OK #### [address] [address] #### ADIFF, CBC, ANSG, ANEU, ABOG #### [place] [address] [place], [place] [address] LABORATORYOrdered By: Patricia Godoy on 05-19-2023 ABO/Rh Interp Positive Invalid Interpretation Code AO BB SS Antibody Screen Gel Negative ABSC (05/19/23 7:39 PM) Invalid Interpretation Code AO BB SS LABORATORYOrdered By: SYSTEM SYSTEM on 05-19-2023 Basophil, Absolute 0.0 103/mcL Invalid Interpretation Code 0.0 - 0.2 10^3/mcL AO Workflow SS Basophils/100 WBC (Bld) 0.2 % Invalid Interpretation Code 0.0 - 2.5 % AO Workflow SS Eosinophil, Absolute 0.0 103/mcL Invalid Interpretation Code 0.0 - 0.4 10^3/mcL AO Workflow SS Eosinophils/100 WBC (Bld) 0.1 % Invalid Interpretation Code 0.0 - 7.0 % AO Workflow SS Erythrocyte distribution width (RBC) [Ratio] 12.9 % Invalid Interpretation Code 11.5 - 14.5 % AO Workflow SS Hematocrit (Bld) [Volume fraction] 38.2 % Invalid Interpretation Code 37.0 - 47.0 % AO Workflow SS Hemoglobin (Bld) [Mass/Vol] 12.7 G/dL Invalid Interpretation Code 12.0 - 16.0 G/dL AO Workflow SS Lymphocyte, Absolute 1.5 103/mcL Invalid Interpretation Code 0.8 - 3.9 10^3/mcL AO Workflow SS Lymphocytes/100 WBC (Bld) 13.1 % Invalid Interpretation Code 10.0 - 50.0 % AO Workflow SS MCH (RBC) [Entitic mass] 30.8 pg Invalid Interpretation Code 27.0 - 31.2 pg AO Workflow SS MCHC 33.3 G/dL Invalid Interpretation Code 33.0 - 37.0 G/dL AO Workflow SS MCV (RBC) [Entitic vol] 92.5 fL Invalid Interpretation Code 80.0 - 94.0 fL AO Workflow SS Monocyte, Absolute 0.6 103/mcL Invalid Interpretation Code 0.2 - 1.0 10^3/mcL AO Workflow SS Monocytes/100 WBC (Bld) 5.7 % Invalid Interpretation Code 1.7 - 13.0 % AO Workflow SS Neutrophil, Absolute 9.1 103/mcL Invalid Interpretation Code 2.9 - 6.2 10^3/mcL AO Workflow SS Neutrophils/100 WBC (Bld) 80.9 % Invalid Interpretation Code 37.0 - 80.0 % AO Workflow SS Platelet mean volume (Bld) [Entitic vol] 9.7 fL Invalid Interpretation Code 7.4 - 10.4 fL AO Workflow SS Platelets (Bld) [#/Vol] 182 103/mcL Invalid Interpretation Code 130 - 400 10^3/mcL AO Workflow SS RBC (Bld) [#/Vol] 4.13 106/mcL Invalid Interpretation Code 4.20 - 5.40 10^6/mcL AO Workflow SS WBC (Bld) [#/Vol] 11.2 103/mcL Invalid Interpretation Code 4.6 - 10.8 10^3/mcL AO Workflow SS LABORATORYOrdered By: Dee guerrero on 05-19-2023 ABO and Rh group Nom (Bld) O positive (05/19/23 6:26 PM) [facility] Group B Strep Date Performed [id number] [facility] Group B Strep, External Negative (05/19/23 6:26 PM) [facility] Hepatitis B Date Performed [id number] [facility] Hepatitis B, External Negative (05/19/23 6:26 PM) [facility] HIV Antibodies, External Unknown (05/19/23 6:26 PM) [facility] RPR, External Nonreactive (05/19/23 6:26 PM) [facility] Rubella, External Immune (05/19/23 6:26 PM) [facility] Emergency Department Summary on 03-26-2023 Emergency Department Summary [facility] Medical Records Department [address] [place] [address] Emergency Department Summary 03/26/23 MR#: [id number] Acct: [id number] Name: JIA JENSEN Rep #: [id number] : 1990 32 From: Selvin Trevino DO PCP: Care Physician,No Primary Status:DEP ER Location: ED HPI History of Present Illness Chief Complaint: Abscess Informant: patient Narrative Narrative: Patient is a 32-year-old female who is a who reports she is approximate 35 weeks . She states over the last 2 to 3 days she has noticed increasing pain and swelling along the left lower portion of her inner thigh/labia. She states she was planning on calling the PURCHASING ASSISTANT but the pain is increased to the point where she cannot take anymore and is not responding to [id number] medications and with concern for infection she presents for evaluation. She denies any vaginal bleeding or discharge or loss of fluid PFSH PFS Medical History Painless rectal bleeding Home Medications Bacillus coagulans 800 million cell tablet (Digestive Advantage Probiotics-Prebioti c) cell PO 09/05/22 [History Last Taken Unknown] calcium citrate 250 mg PO .q.i.d 09/05/22 [History Last Taken Unknown] mupirocin 2 % topical ointment 1 applic topical TID 09/05/22 [History Last Taken Unknown] omega-3 fatty acids 1,000 mg capsule 1,000 mg PO DAILY 09/05/22 [History Last Taken Unknown] thyroid (pork) 30 mg tablet ([place] Thyroid) 30 mg PO DAILY 09/05/22 [History Last Taken Unknown] cephalexin 500 mg capsule 500 mg PO TID 7 days #21 caps 03/26/23 [Rx Last Taken Unknown] Allergy/AdvReac Type Severity Reaction Status Date / Time fentanyl AdvReac Other Verified 03/26/23 01:34 Family History Mother Arthritis Depression Osteoarthritis Osteoporosis Surgical History S/P LASIK surgery of both eyes Social History household members: spouse Smoking Status: Never smoker alcohol intake: current alcohol intake frequency: a few times a month ROS ROS ED Constitutional Constitutional ED: Denies chills or fever(s) ENT ENT ED: Denies sore throat Cardiovascular Cardiovascular: Denies chest pain Respiratory/Chest Respiratory/Chest: Denies cough or dyspnea Gastrointestinal Gastrointestinal: Denies abdominal pain, diarrhea, nausea or vomiting Genitourinary Genitourinary ED: Denies dysuria or hematuria Musculoskeletal Musculoskeletal: Denies myalgias Integumentary Reports abscess Neurologic Neurologic: Denies headache(s) Hematologic/Lymphat ic Hematologic/Lymphat ic: Denies easy bleeding or easy bruising EXAM Physical Exam Const Vital Signs: 03/26/23 01:29 Temperature 98.1 F Temperature Source Oral Pulse Rate 108 H Respiratory Rate 15 Blood Pressure 128/79 H Blood Pressure Mean 95 Pulse Ox 97 Oxygen Delivery Method Room Air Positive well nourished and well developed General Appearance ED: well developed Eyes PERRL and EOMs intact bilaterally Neck supple Resp normal respiratory effort and clear to auscultation bilaterally Cardio regular rate and regular rhythm Narrative: Along the left lower inguinal/perineal region there is a 1 x 2 cm area of erythema warmth and induration that is tender to touch most consistent with abscess. This lesion is just lateral of the labia and indicates it is more on the soft tissue skin not vaginal tissue. There is no discharge or bleeding noted from the vaginal os. Extremity normal to inspection Neuro oriented x3 and CN's II-XII intact bilaterally Sensorium / Orientation: alert Psych mental status grossly normal Skin Skin Narrative: Soft tissue changes along the left inguinal region as documented above consistent with abscess MDM MDM MDM Narrative Medical decision making narrative: Patient presented to the ER afebrile the area in question is located along the left lower inguinal region and does not appear to involve the vagina and there are no secondary changes to suggest systemic infection such as lymphangitic streaking or fever. Therefore at this time my concern for Bartholin cyst/abscess versus systemic infection from a secondary cellulitis is low. Also as the patient does not have abdominal pain or loss of fluid concern for issue such as spontaneous bleeding from a subchorionic hemorrhage or rupture membranes is low. I do not feel there is need for laboratory studies as the physical exam indicates the infection is localized in the soft tissue. Therefore the area was incised and drained as documented below and following this patient is safe for discha (more content not included)... Normal [facility] OB Triage Physician Noteon 0 03-07-2023 OB Triage Physician Note [facility] Medical Records Department [address] [place] [address] OB Triage Physician Note 03/07/23 190 MR#: [id number] Acct: [id number] Name: JIA JENSEN Rep #: [id number] : 1990 32 From: Kami Rivers MD PCP: Care Physician,No Primary Status:DEP CLI Y Location: [facility] HPI - General General Date of Admission: 03/05/23 Date of Service: 03/05/23 Chief Complaint: abdominal pain HPI Narrative JIA JENSEN, is a 32 F who presents 3 P1 at 29 weeks presents for some abdominal pain. She denies any vaginal bleeding or leaking of fluid. She called her routine physician and they told her she should be evaluated. PFSH PFS Medical History Painless rectal bleeding Home Medications Bacillus coagulans 800 million cell tablet (Digestive Advantage Probiotics-Prebioti c) cell PO 09/05/22 [History Last Taken Unknown] calcium citrate 250 mg PO .q.i.d 09/05/22 [History Last Taken Unknown] mupirocin 2 % topical ointment 1 applic topical TID 09/05/22 [History Last Taken Unknown] omega-3 fatty acids 1,000 mg capsule 1,000 mg PO DAILY 09/05/22 [History Last Taken Unknown] thyroid (pork) 30 mg tablet ([place] Thyroid) 30 mg PO DAILY 09/05/22 [History Last Taken Unknown] Allergy/AdvReac Type Severity Reaction Status Date / Time fentanyl AdvReac Other Verified 03/03/23 21:51 Family History Mother Arthritis Depression Osteoarthritis Osteoporosis Surgical History S/P LASIK surgery of both eyes Social History household members: spouse Smoking Status: Never smoker alcohol intake: current alcohol intake frequency: a few times a month NST FHR Rate Baby A Baseline: 130 Variability:: Moderate Accelerations:: 15 x 15 Decelerations:: None NST Reactive:: Yes FHR Category:: Category I Uterine Activity:: quiet Assessment Plan (1) 29 weeks gestation of : PLAN: 29-week high risk multigravida with abdominal pain. Nonspecific abdominal pain. No evidence of labor. No UTI symptoms. Patient was discharged home to follow-up with her routine physician or return as needed. 03/07/231908 Date Kami Rivers MD Cosigner Signature (if applicable): Date __ CC: Dr. Kami Rivers MD; No Primary Care Physician Signed Normal [facility] LABORATORYOrdered By: Kyara Snyder on 04-04-2022 Basophil, Absolute 0.0 103/mcL Invalid Interpretation Code 0.0 - 0.2 10^3/mcL AO Workflow SS Basophils/100 WBC (Bld) 0.5 % Invalid Interpretation Code 0.0 - 2.5 % AO Workflow SS Eosinophil, Absolute 0.1 103/mcL Invalid Interpretation Code 0.0 - 0.4 10^3/mcL AO Workflow SS Eosinophils/100 WBC (Bld) 0.9 % Invalid Interpretation Code 0.0 - 7.0 % AO Workflow SS Erythrocyte distribution width (RBC) [Ratio] 12.8 % Invalid Interpretation Code 11.5 - 14.5 % AO Workflow SS Hematocrit (Bld) [Volume fraction] 39.3 % Invalid Interpretation Code 37.0 - 47.0 % AO Workflow SS Hemoglobin (Bld) [Mass/Vol] 13.4 G/dL Invalid Interpretation Code 12.0 - 16.0 G/dL AO Workflow SS Lymphocyte, Absolute 2.0 103/mcL Invalid Interpretation Code 0.8 - 3.9 10^3/mcL AO Workflow SS Lymphocytes/100 WBC (Bld) 33.7 % Invalid Interpretation Code 10.0 - 50.0 % AO Workflow SS MCH (RBC) [Entitic mass] 31.5 pg Invalid Interpretation Code 27.0 - 31.2 pg AO Workflow SS MCHC 34.2 G/dL Invalid Interpretation Code 33.0 - 37.0 G/dL AO Workflow SS MCV (RBC) [Entitic vol] 92.1 fL Invalid Interpretation Code 80.0 - 94.0 fL AO Workflow SS Monocyte, Absolute 0.5 103/mcL Invalid Interpretation Code 0.2 - 1.0 10^3/mcL AO Workflow SS Monocytes/100 WBC (Bld) 8.2 % Invalid Interpretation Code 1.7 - 13.0 % AO Workflow SS Neutrophil, Absolute 3.4 103/mcL Invalid Interpretation Code 2.9 - 6.2 10^3/mcL AO Workflow SS Neutrophils/100 WBC (Bld) 56.7 % Invalid Interpretation Code 37.0 - 80.0 % AO Workflow SS Platelet mean volume (Bld) [Entitic vol] 8.5 fL Invalid Interpretation Code 7.4 - 10.4 fL AO Workflow SS Platelets (Bld) [#/Vol] 259 103/mcL Invalid Interpretation Code 130 - 400 10^3/mcL AO Workflow SS RBC (Bld) [#/Vol] 4.27 106/mcL Invalid Interpretation Code 4.20 - 5.40 10^6/mcL AO Workflow SS WBC 6.0 103/mcL Invalid Interpretation Code 4.6 - 10.8 10^3/mcL AO Workflow SS LABORATORYOrdered By: SYSTEM SYSTEM on 04-04-2022 Monocyte distribution width Auto (Bld) [Entitic vol] Not Performed 1 *NA* (04/04/22 8:29 AM) Invalid Interpretation Code 0.00 - 20.00 AO Hematology S Comment on above: Result Comment: MDW testing performed only on adult ER patients between the ages of 18-89 years. LABORATORYOrdered By: Kyara Snyder on 10-17-2021 Hematocrit (Bld) [Volume fraction] 30.9 % Invalid Interpretation Code 37.0 - 47.0 % AO Auto Heme SS Hemoglobin (Bld) [Mass/Vol] 10.4 G/dL Invalid Interpretation Code 12.0 - 16.0 G/dL AO Auto Heme SS LABORATORYOrdered By: Sharon Blake on 10-14-2021 ABO/Rh Interp Positive Invalid Interpretation Code AO BB SS Antibody Screen Gel Negative ABSC (10/14/21 12:15 PM) Invalid Interpretation Code AO BB SS LABORATORYOrdered By: Roland Weldon on 10-14-2021 Basophil, Absolute 0.00 103/mcL Invalid Interpretation Code 0.00 - 0.19 10^3/mcL AO Auto Heme SS Basophils/100 WBC (Bld) 0.2 % Invalid Interpretation Code 0.0 - 2.5 % AO Auto Heme SS Eosinophil, Absolute 0.00 103/mcL Invalid Interpretation Code 0.00 - 0.40 10^3/mcL AO Auto Heme SS Eosinophils/100 WBC (Bld) 0.1 % Invalid Interpretation Code 0.0 - 7.0 % AO Auto Heme SS Erythrocyte distribution width (RBC) [Ratio] 12.9 % Invalid Interpretation Code 11.5 - 14.5 % AO Auto Heme SS Hematocrit (Bld) [Volume fraction] 39.6 % Invalid Interpretation Code 37.0 - 47.0 % AO Auto Heme SS Hemoglobin (Bld) [Mass/Vol] 13.2 G/dL Invalid Interpretation Code 12.0 - 16.0 G/dL AO Auto Heme SS Lymphocyte, Absolute 1.50 103/mcL Invalid Interpretation Code 0.77 - 3.85 10^3/mcL AO Auto Heme SS Lymphocytes/100 WBC (Bld) 18.0 % Invalid Interpretation Code 10.0 - 50.0 % AO Auto Heme SS MCH (RBC) [Entitic mass] 31.7 pg Invalid Interpretation Code 27.0 - 31.2 pg AO Auto Heme SS MCHC (RBC) [Mass/Vol] 33.4 G/dL Invalid Interpretation Code 33.0 - 37.0 G/dL AO Auto Heme SS MCV (RBC) [Entitic vol] 94.9 fL Invalid Interpretation Code 80.0 - 94.0 fL AO Auto Heme SS Monocyte, Absolute 0.50 103/mcL Invalid Interpretation Code 0.15 - 1.00 10^3/mcL AO Auto Heme SS Monocytes/100 WBC (Bld) 6.5 % Invalid Interpretation Code 1.7 - 13.0 % AO Auto Heme SS Neutrophil, Absolute 6.30 103/mcL Invalid Interpretation Code 2.85 - 6.16 10^3/mcL AO Auto Heme SS Neutrophils/100 WBC (Bld) 75.2 % Invalid Interpretation Code 37.0 - 80.0 % AO Auto Heme SS Platelet mean volume (Bld) [Entitic vol] 8.9 fL Invalid Interpretation Code 7.4 - 10.4 fL AO Auto Heme SS Platelets (Bld) [#/Vol] 219 103/mcL Invalid Interpretation Code 130 - 400 10^3/mcL AO Auto Heme SS RBC (Bld) [#/Vol] 4.17 106/mcL Invalid Interpretation Code 4.20 - 5.40 10^6/mcL AO Auto Heme SS WBC (Bld) [#/Vol] 8.40 103/mcL Invalid Interpretation Code 4.60 - 10.80 10^3/mcL AO Auto Heme SS Vital Signs Date Time Vital Sign Value Performing Clinician Lasha valdes 05-20-2023 14:52-0400 Body temperature 97.88 [degF] JOSE ENRIQUE TOBAR DO [facility] 05-20-2023 14:52-0400 Diastolic Blood Pressure Non-Invasive 68 1 JOSE ENRIQUE TOBAR DO [facility] 05-20-2023 14:52-0400 Heart rate 72 /min JOSE ENRIQUE TOBAR DO [facility] 05-20-2023 14:52-0400 Reason For Taking VItal Signs JOSE ENRIQUE TOBAR DO [facility] 05-20-2023 14:52-0400 Respiratory rate 18 /min JOSE ENRIQUE TOBAR DO [facility] 05-20-2023 14:52-0400 Systolic Blood Pressure Non-Invasive 120 1 JOSE ENRIQUE TOBAR DO [facility] 05-20-2023 08:36-0400 Body temperature 98.24 [degF] JOSE ENRIQUE TOBAR DO [facility] 05-20-2023 08:36-0400 Diastolic Blood Pressure Non-Invasive 73 1 JOSE ENRIQUE TOBAR DO [facility] 05-20-2023 08:36-0400 Heart rate 66 /min JOSE ENRIQUE GILLESPIEOCK DO [facility] 05-20-2023 08:36-0400 Reason For Taking VItal Signs JOSE ENRIQUE GILLESPIEOCK DO [facility] 05-20-2023 08:36-0400 Respiratory rate 16 /min JOSE ENRIQUE GILLESPIEOCK DO [facility] 05-20-2023 08:36-0400 Systolic Blood Pressure Non-Invasive 127 1 JOSE ENRIQUE GILLESPIEOCK DO [facility] 05-19-2023 20:17-0400 Diastolic Blood Pressure Non-Invasive 66 1 JOSE ENRIQUE GILLESPIEOCK DO [facility] 05-19-2023 20:17-0400 Heart rate 67 /min JOSE ENRIQUE GILLESPIEOCK DO [facility] 05-19-2023 20:17-0400 Respiratory rate 18 /min JOSE ENRIQUE TOBAR DO [facility] 05-19-2023 20:17-0400 Systolic Blood Pressure Non-Invasive 127 1 JOSE ENRIQUE GILLESPIEOCK DO [facility] 05-19-2023 18:26-0400 Body height 170.2 cm JOSE ENRIQUE GILLESPIEOCK DO [facility] 05-19-2023 18:26-0400 Body weight 102.3 kg JOSE ENRIQUE GILLESPIEOCK DO [facility] 05-19-2023 18:26-0400 Body weight 35.31 kg/m2 JOES ENRIQUE GILLESPIEOCK DO [facility] 05-19-2023 18:10-0400 Body temperature 98.24 [degF] JOSE ENRIQUETAVARES GILLESPIESTEFFANIE CASTILLO [facility] 05-11-2023 10:25-0400 Body height 170.2 cm SHAHBAZ EMMANUEL SENIOR NET ENGINEER-CNM [facility] 05-11-2023 10:25-0400 Body weight 98 kg SHAHBAZ EMMANUEL SENIOR NET ENGINEER-CNM [facility] 05-11-2023 10:25-0400 Body weight 33.83 kg/m2 SHAHBAZ EMMANUEL SENIOR NET ENGINEER-CNM [facility] 05-11-2023 10:23-0400 Body temperature 98.06 [degF] SHAHBAZ EMMANUEL SENIOR NET ENGINEER-CNM [facility] 05-11-2023 10:23-0400 Diastolic Blood Pressure Non-Invasive 80 1 SHAHBAZ EMMANUEL SENIOR NET ENGINEER-CNM [facility] 05-11-2023 10:23-0400 Heart rate 70 /min SHAHBAZ EMMANUEL SENIOR NET ENGINEER-CNM [facility] 05-11-2023 10:23-0400 Systolic Blood Pressure Non-Invasive 133 1 SHAHBAZ EMMANUEL SENIOR NET ENGINEER-CNM [facility] 10-17-2021 10:02-0500 Body temperature 97.88 [degF] HERNANDEZ TRIVEDI SENIOR NET ENGINEER-CNM [facility] 10-17-2021 10:02-0500 Diastolic blood pressure 79 mm[Hg] HERNANDEZ TRIVEDI SENIOR NET ENGINEER-CNM [facility] 10-17-2021 10:02-0500 Heart rate 78 /min HERNANDEZ TRIVEDI SENIOR NET ENGINEER-CNM [facility] 10-17-2021 10:02-0500 Mean blood pressure 93 mm[Hg] HERNANDEZ TRIVEDI SENIOR NET ENGINEER-CNM [facility] 10-17-2021 10:02-0500 Respiratory rate 20 /min HERNANDEZ TRIVEDI SENIOR NET ENGINEER-CNM [facility] 10-17-2021 10:02-0500 Systolic blood pressure 120 mm[Hg] HERNANDEZ TRIVEDI SENIOR NET ENGINEER-CNM [facility] 10-16-2021 23:03-0500 Body temperature 98.06 [degF] HERNANDEZ TRIVEDI SENIOR NET ENGINEER-CNM [facility] 10-16-2021 23:03-0500 Diastolic blood pressure 75 mm[Hg] HERNANDEZ TRIVEDI SENIOR NET ENGINEER-CNM [facility] 10-16-2021 23:03-0500 Heart rate 61 /min HERNANDEZ TRIVEDI SENIOR NET ENGINEER-CNM [facility] 10-16-2021 23:03-0500 Mean blood pressure 95 mm[Hg] HERNANDEZ TRIVEDI SENIOR NET ENGINEER-CNM [facility] 10-16-2021 23:03-0500 Respiratory rate 18 /min HERNANDEZ TRIVEDI SENIOR NET ENGINEER-CNM [facility] 10-16-2021 23:03-0500 Systolic blood pressure 135 mm[Hg] HERNANDEZ TRIVEDI SENIOR NET ENGINEER-CNM [facility] 10-16-2021 15:10-0500 Body temperature 97.52 [degF] HERNANDEZ TRIVEDI SENIOR NET ENGINEER-CNM [facility] 10-16-2021 15:10-0500 Diastolic blood pressure 64 mm[Hg] HERNANDEZ TRIVEDI SENIOR NET ENGINEER-CNM [facility] 10-16-2021 15:10-0500 Heart rate 77 /min HERNANDEZ TRIVEDI SENIOR NET ENGINEER-CNM [facility] 10-16-2021 15:10-0500 Mean blood pressure 81 mm[Hg] HERNANDEZ TRIVEDI SENIOR NET ENGINEER-CNM [facility] 10-16-2021 15:10-0500 Respiratory rate 18 /min HERNANDEZ TRIVEDI SENIOR NET ENGINEER-CNM [facility] 10-16-2021 15:10-0500 Systolic blood pressure 114 mm[Hg] HERNANDEZ TRIVEDI SENIOR NET ENGINEER-CNM [facility] 10-16-2021 08:00-0500 Heart rate 92 /min HERNANDEZ TRIVEDI SENIOR NET ENGINEER-CNM [facility] 10-15-2021 05:09-0500 Body temperature 98.24 [degF] HERNANDEZ TRIVEDI SENIOR NET ENGINEER-CNM [facility] 10-14-2021 17:04-0500 Body temperature 98.42 [degF] HERNANDEZ TRIVEDI SENIOR NET ENGINEER-CNM [facility] 10-14-2021 16:00-0500 Body temperature 97.88 [degF] HERNANDEZ TRIVEDI SENIOR NET ENGINEER-CNM [facility] 10-14-2021 10:42-0500 Body height 170.2 cm HERNANDEZ TRIVEDI SENIOR NET ENGINEER-CNM [facility] 10-14-2021 10:42-0500 Body weight 100 kg HERNANDEZ TRIVEDI SENIOR NET ENGINEER-CNM [facility] 10-14-2021 10:42-0500 Body weight 34.52 kg/m2 HERNANDEZ TRIVEDI SENIOR NET ENGINEER-CNM [facility] Encounters Encounter Date Encounter Type Care Provider Facility Start: 08-11-2025 End: 08-11-2025 ambulatory [facility] Facility:[facility] Start: 07-28-2025 End: 07-28-2025 ambulatory DASIA BANSAL SENIOR NET ENGINEER-CNM Facility:[facility] Start: 07-28-2025 End: 07-28-2025 Patient encounter procedure DASIA BANSAL SENIOR NET ENGINEER-CNM [facility] Start: 07-13-2025 End: 07-13-2025 ambulatory HERNANDEZ TRIVEDI SENIOR NET ENGINEER-CNM Facility:[facility] Start: 07-13-2025 End: 07-13-2025 Patient encounter procedure HERNANDEZ TRIVEDI SENIOR NET ENGINEER-CNM [facility] Start: 04-08-2025 End: 04-08-2025 Emergency department patient visit ATILIO Elaina JENNIFER [facility] Start: 09-09-2024 End: 09-09-2024 ambulatory OMERESTELLA Chanel LIEN SENIOR NET ENGINEER-CNM Facility:[facility] Start: 09-09-2024 End: 09-09-2024 Patient encounter procedure OMERESTELLA Chanel LIEN SENIOR NET ENGINEER-CNM [facility] Start: 03-27-2024 End: 03-27-2024 ambulatory OMERESTELLA Chanel LIEN SENIOR NET ENGINEER-CNM Facility:[facility] Start: 03-27-2024 End: 03-27-2024 Patient encounter procedure OMERESTELLA Chanel EMMANUEL SENIOR NET ENGINEER-CNM [facility] Start: 05-21-2023 End: 05-22-2023 ambulatory No Primary Care Physician Facility:[facility] Start: 05-19-2023 End: 05-20-2023 Evaluation and management of inpatient JOSE ENRIQUE TOBAR DO [facility] Start: 05-11-2023 End: 05-11-2023 ambulatory OMERESTELLA Chanel EMMANUEL SENIOR NET ENGINEER-CNM Facility:[facility] Start: 05-11-2023 End: 05-11-2023 SAME DAY STAY OMERESTELLA Chanel EMMANUEL SENIOR NET ENGINEER-CNM [facility] Start: 03-26-2023 End: 03-26-2023 Emergency department patient visit No Primary Care Physician Facility:[facility] Start: 03-03-2023 End: 03-03-2023 ambulatory No Primary Care Physician Facility:[facility] Start: 12-29-2022 End: 12-29-2022 Patient encounter procedure HERNANDEZ TRIVEDI SENIOR NET ENGINEER-CNM [facility] Start: 11-24-2022 ambulatory No Primary Car e Physician Facility:[facility] Start: 10-06-2022 End: 10-06-2022 Patient encounter procedure HERNANDEZ TRIVEDI SENIOR NET ENGINEER-CNM [facility] Start: 04-04-2022 End: 04-04-2022 Patient encounter procedure LUIZ RODRIGUEZ SENIOR NET ENGINEER-TRACK LINER OPERATOR [facility] Start: 10-14-2021 End: 10-17-2021 Evaluation and management of inpatient HERNANDEZ TRIVEDI SENIOR NET ENGINEER-CNM [facility] Start: 10-14-2021 End: 10-14-2021 Patient encounter procedure SHAHBAZ EMMANUEL SENIOR NET ENGINEER-CNM [facility] Procedures Date Procedure Procedure Detail Performing Clinician Start: 04-08-2025 Urinalysis ATILIO CAT Comment on above: Result Comment: URIN ALYSIS Performed By: #### [id number] ####[facility],[address] [place] [address] Endoscopy SHAHBAZ Jolly SENIOR NET ENGINEER-CNM In vitro fertilization ARACELY AL SENIOR NET ENGINEER-CNM Laser assisted in si tu keratomileusis SHAHBAZ EMMANUEL SENIOR NET ENGINEER-CNM Payers Date Payer Category Payer Private Health Insurance [id number] 2022 Self-pay 2021 Unknown [id number] 1991 Unknown [id number] 2.16.8 [id number] 1991 Unknown [id number] 2.16.8 [id number] 1991 Unknown [id number] 2.16.8 [id number] 1991 Unknown [id number] 2.16.8 [id number] 1991 Unknown [id number] 2.16. [id number] 1991 Unknown [id number] 2.16. [id number] 1991 Unknown [id number] 2.16.8 [id number] Unknown [id number] 2.16.8 [id number] Unknown [id number] 2.16.8 [id number] Unknown [id number] 2.16.8 [id number] Unknown [id number] 2.16.8 [id number] Social History Date Type Detail Facility Start: 10-14-2021 Never smoked t obacco (finding) [facility] Sex Assigned At Female [facility] Sexual Orientation [facility] Start: 08-21-2019 Sex Female (finding) [facility] Sexual Sexually active: Yes. [facility] Functional Status Date Assessment Result Facility 05-20-2023 Functional Status Rooming in [facility] 05-20-2023 Functional Status [facility] 05-20-2023 Functional Status [facility] 05-19-2023 Functional Status Shower [facility] 05-19-2023 Functional Status Home [facility] Clinical Notes 10-14-2021 to 08-11-2025 Note Date & Type Note Facility 08-11-2025 Note HNO ID: [id number] Author: AMERICO CHANG APRN.CNM Service: ? Author Type: Human Resource Adviser Type: Progress Notes Filed: 08/11/2025 16:23 Note Text: INITIAL OB ASSESSMENT HPI: Jia is a 35 year old White here to establish Obstetrical Care. Patient's last menstrual period was 02/11/2025. from OB Dating Form. was planned Complaints: No OB History Gravida4 Para2 Term2 Preterm0 AB1 Living2 SAB1 IAB0 Ectopic0 Multiple0 Live Births0 Previous history: Prior : No History of 4th degree laceration: No History of shoulder dystocia: No History of Hypertensive disorders including pre-eclampsia or gestational hypertension: No History of gestational diabetes: No Patient's Risk Screening for delivery: Have you had a prior hawkins between 20w and 36w6d? No How many pregnancies have you had before? 3 Did you have a previous baby with a GBS Infection? No Please select all that apply for any prior : N/A MEDICAL/PSYCHOSOCIAL HISTORY: History of hemorrhage or bleeding concerns: No Thyroid Disease: Yes History of chronic hypertension: No History of pre-existing diabetes: No No results found for: ABORHD BMI 32.52 kg/(m2) Last Pap: History of abnormal pap: Yes HPV Prior treatment for cervical dysplasia: none. Last HPV: History of STDs: None Partner History of STDs: None Did you have a partner with Herpes? No Tobacco use: No E-Cigarette/Vaping Use: No Caffeine use: Yes - Crystal light water with caffeine Drug use: No Alcohol use: No Multivitamin with Folic acid: Yes Would refuse blood transfusion if medically necessary: No Social Needs: How often does this describe you? I don't have enough money to pay my bills: Never Within the past 12 months, have you worried that your food would run out before you had money to buy more? Never In the past 12 months, has lack of reliable transportation kept you from going to medical appointments or work, or from getting things needed for daily living? Never In the past 12 months, have you had any concerns about having a place to live, or about the condition or quality of your housing? Never Would you like more information on any of the following (please check all that apply)? Human Resource Adviser care Social History: Do you have any history of depression, anxiety, PTSD, or other mood problems? No Do you have a history of abuse or trauma that may impact your experience? No Are you currently employed? Yes Depression/Anxiety Screening: denies symptoms of depression. OB Depression and Anxiety Screening- This Encounter Feeling down, depressed, or hopeless: Not at all Little interest or pleasure in doing things: Not at all Feeling nervous, anxious, or on edge Not at all Not being able to stop or control worrying Not at all Anxiety Pre-Screening Total (If >/= 3 additional questions will be reviewed) 0 Genetic Screening: Partner present: Yes Patient verbalized knowledge of partner family health history: Yes Do you or your partner have any personal or family history of defects not previously discussed: No Do you have history of a complicated by anomaly, genetic condition, or demise: No Preeclampsia Risk Screening: Screening for prevention of preeclampsia: High risk factors: None Moderate risk ractors: None OB Risk Screening: Completed, no positive findings documented. Marital Status: Partner: Name: Jerardo Age: 34 Occupation: [employer] Gender: Male PAST MEDICAL HISTORY Diagnosis Date Abnormal Pap smear of cervix Hpv few years ago. Normal since Thyroid disease 2019 PAST SURGICAL HISTORY Procedure Laterality Date KERATOMILEUSIS Bilateral 03/01/2018 LASIK/[place] (Laser in situ Keratomileusis with Intralase) Current Outpatient Medications Medication Sig Dispense Refill Magnesium Oxide 500 mg magnesium tab OTC PRODUCT once daily. OTC PRODUCT Take 1 tablet by mouth once daily. COLLAGEN SKIN RENEWAL 30 MG-833.33 MG ORAL TABLET ARMOUR THYROID 60 mg tablet Take 60 mg by mouth once daily. calcium carb/mag oxide/C/beta (CALCIUM COMPLETE ORAL) Take by mouth once daily. MULTIVITAMIN ORAL Take by mouth once daily. PNV/iron bg/omega-3/folic acid ( AUR-GFQE-CH-OMEGA 3 ORAL) Take by mouth once daily. GENERIC EXTERNAL MEDICATION Recover AI takes one tablet daily GENERIC EXTERNAL MEDICATION Replenex 2 tablets daily MIRALAX POWDER 17 grams po in fluid / d (Patient not taking: No sig reported) 1 mo 2 No current facility-administered medications for this visit. Allergies As of Date: 08/11/2025 (No Known Allergies) Fully Assessed 04/10/2020 Does patient have penicillin allergy: No REVIEW OF SYSTEMS: GENERAL: Negative for: Fever or Chills HEENT: Negative for: Headache, Impaired Vision, Ringing in Ears, Nosebleeds NECK: Negative for: Swelling, Pain, Stiffness RESPIRATORY: Negat (more content not included)... [facility] 05-20-2023 Hospital Discharg e instructions Patient Education 05/20/2023 07:09:31 7b- Depression and Blues (07/2020)(CUSTOM) Ismael Depression and Blues All mothers are at risk of developing depression or the blues. These mood changes can occur right after giving , or they may occur many months after giving . blues or depression can be mild or severe. Additionally, depression can go away rather quickly, or it can be a long-term condition. CAUSES Raised hormone levels and the rapid drop in those levels are thought to be a main cause of depression and blues. A number of hormones change during and after . Estrogen and progesterone usually decrease right after delivery. The levels of thyroid hormone and various cortisol steroids also rapidly drop. Other factors that play a role in these mood changes include major life events and genetics. RISK FACTORS If you have any of the following risks for blues or depression, know what symptoms to watch out for during the period. Risk factors that may increase the likelihood of getting blues or depression include: Having a personal or family history of depression. Having depression while being . Having premenstrual mood issues or mood issues related to oral contraceptives. Having a lot of life stress. Having marital conflict. Lacking a social support network. Having health problems, such as diabetes. SIGNS AND SYMPTOMS Symptoms of blues include: Brief changes in mood, such as going from extreme happiness to sadness. Decreased concentration. Difficulty sleeping. Crying spells, tearfulness. Irritability. Anxiety. Symptoms of depression typically begin within the first month after giving . These symptoms include: Difficulty sleeping or excessive sleepiness. Marked weight loss. Agitation. Feelings of worthlessness. Lack of interest in activity or food. psychosis is a very serious condition and can be dangerous. Fortunately, it is rare. Displaying any of the following symptoms is cause for immediate medical attention. Symptoms of psychosis include: Hallucinations and delusions. Bizarre or disorganized behavior. Confusion or disorientation. DIAGNOSIS A diagnosis is made by an evaluation of your symptoms. There are no medical or lab tests that lead to a diagnosis, but there are various questionnaires that a health care provider may use to identify those with blues, depression, or psychosis. Often, a screening tool called the Darrington Depression Scale is used to diagnose depression in the period. TREATMENT blues usually goes away on its own in 1 2 weeks. Social support is often all that is needed. You will be encouraged to get adequate sleep and rest. Occasionally, you may be given medicines to help you sleep. depression requires treatment because it can last several months or longer if it is not treated. Treatment may include individual or group therapy, medicine, or both to address any social, physiological, and psychological factors that may play a role in the depression. Regular exercise, a healthy diet, rest, and social support may also be strongly recommended. psychosis is more serious and needs treatment right away. Hospitalization is often needed. HOME CARE INSTRUCTIONS Get as much rest as you can. Exercise regularly. Some women find yoga and walking to be beneficial. Eat a balanced and nourishing diet. Do little things that you enjoy. Have a cup of tea, take a bubble bath, read your favorite magazine, or listen to your favorite music. Avoid alcohol. Ask for help with assembler metal furniture, cooking, grocery shopping, or running errands as needed. Do not try to do everything. Talk to people close to you about how you are feeling. Get support from your partner, family members, and friends. Try to stay positive in how you think. Think about the things you are grateful for. Do not spend a lot of time alone. Only take lihb-tcd-ewyyoan or prescription medicine as directed by your health care provider. Keep all your appointments. Let your health care provider know if you have any concerns. SEEK MEDICAL CARE IF: You are having a reaction to or problems with your medicine. SEEK IMMEDIATE MEDICAL CARE IF: You have suicidal feelings. You think you may harm yourself or someone else. MAKE SURE YOU: Understand these instructions. Will watch your condition. Will get help right away if you are not doing well or get worse. Resource: [facility] [place] Patient Information 2015 [facility]. This information is not intended to replace advice given to you by your health care provider. Make sure you discuss any questions you have with your health care provider. 05/20/2023 07:09:10 and Self-Care, Uxnk-ak-[id number] and Self-Care It is normal to have some problems when you start to breastfeed your new baby. But there are things that you can do to take care of yourself and help prevent many common problems. This includes keeping your breasts healthy and making sure that your baby's mouth attaches (latches) properly to your nipple for feedings. Work with your doctor or specialist (incident response consultant) to find what works best for you. Follow these instructions at home: strategy Always make sure that your baby latches properly to breastfeed. Make sure that your baby is in a proper position. Try different positions to find one that works best for you and your baby. Breastfeed when you feel like you need to make your breasts less full or when your baby shows signs of hunger. This is called on demand. Do not delay feedings. Try to relax when it is time to feed your baby. This helps your body release milk from your breast. To help increase milk flow: ?Remove a small amount of milk from your breast right before . Do this using a pump or by squeezing with your hand. ?Apply warm, moist heat to your breast right before feeding. You can do this in the shower or with hand towels soaked with warm water. ?Massage your breast right before or during feeding. Breast care To help your breasts stay healthy and keep them from getting too dry: ?Avoid using soap on your nipples. ?Let your nipples air-dry for 3 4 minutes after each feeding. ?Use only cotton bra pads to soak up breast milk that leaks. Be sure to change the pads if they become soaked with milk. If you use bra pads that can be thrown away, change them often. ?Put some lanolin on your nipples after . Pure lanolin does not need to be washed off your nipple before you feed your baby again. Pure lanolin is not harmful to your baby. ?Rub some breast milk into your nipples: ?Use your hand to squeeze out a few drops of breast milk. ?Gently massage the milk into your nipples. ?Let your nipples air-dry. Wear a supportive nursing bra. Avoid wearing: ?Tight clothing. ?Underwire bras or bras that put pressure on your breasts. Use ice to help relieve pain or swelling of your breasts: ?Put ice in a plastic bag. ?Place a towel between your skin and the bag. ?Leave the ice on for 20 minutes, 2 3 times a day. General instructions Drink enough fluid to keep your pee (urine) pale yellow. Get plenty of rest. Sleep when your baby sleeps. Talk to your doctor or specialist before taking any herbal supplements. Contact a health care provider if: You have nipple pain. You have cracking or soreness in your nipples that lasts longer than 1 week. Your breasts are overfilled with milk (engorgement) and this lasts longer than 48 hours. You have a fever. You have pus-like fluid coming from your nipple. You have redness, a rash, swelling, itching, or burning on your breast. Your baby does not gain weight. Your baby loses weight. Summary There are things that you can do to take care of yourself and help prevent many common problems. Always make sure that your baby's mouth attaches (latches) to your nipple properly to breastfeed. Keep your nipples from getting too dry, drink plenty of fluid, and get plenty of rest. Feed on demand. Do not delay feedings. This information is not intended to replace advice given to you by your health care provider. Make sure you discuss any questions you have with your health care provider. Document Released: 05/08/2018 Document Revised: 01/21/2020 Document Reviewed: 05/08/2018 [employer] Patient Education 2020 [employer] 05/20/2023 07:08:34 Care After Vaginal Delivery Care After Vaginal Delivery This sheet gives you information about how to care for yourself from the time you deliver your baby to up to 6 12 weeks after delivery ( period). Your health care provider may also give you more specific instructions. If you have problems or questions, contact your health care provider. Follow these instructions at home: Vaginal bleeding It is normal to have vaginal bleeding (lochia) after delivery. Wear a sanitary pad for vaginal bleeding and discharge. ?During the first week after delivery, the amount and appearance of lochia is often similar to a menstrual period. ?Over the next few weeks, it will gradually decrease to a dry, yellow-brown discharge. ?For most women, lochia stops completely by 4 6 weeks after delivery. Vaginal bleeding can vary from woman to woman. Change your sanitary pads frequently. Watch for any changes in your flow, such as: ?A sudden increase in volume. ?A change in color. ?Large blood clots. If you pass a blood clot from your vagina, save it and call your health care provider to discuss. Do not flush blood clots down the toilet before talking with your health care provider. Do not use tampons or douches until your health care provider says this is safe. If you are not , your period should return 6 8 weeks after delivery. If you are feeding your child breast milk only (exclusive ), your period may not return until you stop . Perineal care Keep the area between the vagina and the anus (perineum) clean and dry as told by your health care provider. Use medicated pads and pain-relieving sprays and creams as directed. If you had a cut in the perineum (episiotomy) or a tear in the vagina, check the area for signs of infection until you are healed. Check for: ?More redness, swelling, or pain. ?Fluid or blood coming from the cut or tear. ?Warmth. ?Pus or a bad smell. You may be given a squirt bottle to use instead of wiping to clean the perineum area after you go to the bathroom. As you start healing, you may use the squirt bottle before wiping yourself. Make sure to wipe gently. To relieve pain caused by an episiotomy, a tear in the vagina, or swollen veins in the anus (hemorrhoids), try taking a warm sitz bath 2 3 times a day. A sitz bath is a warm water bath that is taken while you are sitting down. The water should only come up to your hips and should cover your buttocks. Breast care Within the first few days after delivery, your breasts may feel heavy, full, and uncomfortable (breast engorgement). Milk may also leak from your breasts. Your health care provider can suggest ways to help relieve the discomfort. Breast engorgement should go away within a few days. If you are : ?Wear a bra that supports your breasts and fits you well. ?Keep your nipples clean and dry. Apply creams and ointments as told by your health care provider. ?You may need to use breast pads to absorb milk that leaks from your breasts. ?You may have uterine contractions every time you breastfeed for up to several weeks after delivery. Uterine contractions help your uterus return to its normal size. ?If you have any problems with , work with your health care provider or incident response consultant. If you are not : ?Avoid touching your breasts a lot. Doing this can make your breasts produce more milk. ?Wear a good-fitting bra and use cold packs to help with swelling. ?Do not squeeze out (express) milk. This causes you to make more milk. Intimacy and sexuality Ask your health care provider when you can engage in sexual activity. This may depend on: ?Your risk of infection. ?How fast you are healing. ?Your comfort and desire to engage in sexual activity. You are able to get after delivery, even if you have not had your period. If desired, talk with your health care provider about methods of control (contraception). Medicines Take mucd-xtl-eixtzhz and prescription medicines only as told by your health care provider. If you were prescribed an antibiotic medicine, take it as told by your health care provider. Do not stop taking the antibiotic even if you start to feel better. Activity Gradually return to your normal activities as told by your health care provider. Ask your health care provider what activities are safe for you. Rest as much as possible. Try to rest or take a nap while your baby is sleeping. Eating and drinking Drink enough fluid to keep your urine pale yellow. Eat high-fiber foods every day. These may help prevent or relieve constipation. High-fiber foods include: ?Whole grain cereals and breads. ?Brown rice. ?Beans. ?Fresh fruits and vegetables. Do not try to lose weight quickly by cutting back on calories. Take your vitamins until your checkup or until your health care provider tells you it is okay to stop. Lifestyle Do not use any products that contain nicotine or tobacco, such as cigarettes and e-cigarettes. If you need help quitting, ask your health care provider. Do not drink alcohol, especially if you are . General instructions Keep all follow-up visits for you and your baby as told by your health care provider. Most women visit their health care provider for a checkup within the first 3 6 weeks after delivery. Contact a health care provider if: You feel unable to cope with the changes that your child brings to your life, and these feelings do not go away. You feel unusually sad or worried. Your breasts become red, painful, or hard. You have a fever. You have trouble holding urine or keeping urine from leaking. You have little or no interest in activities you used to enjoy. You have not breastfed at all and you have not had a menstrual period for 12 weeks after delivery. You have stopped and you have not had a menstrual period for 12 weeks after you stopped . You have questions about caring for yourself or your baby. You pass a blood clot from your vagina. Get help right away if: You have chest pain. You have difficulty breathing. You have sudden, severe leg pain. You have severe pain or cramping in your lower abdomen. You bleed from your vagina so much that you fill more than one sanitary pad in one hour. Bleeding should not be heavier than your heaviest period. You develop a severe headache. You faint. You have blurred vision or spots in your vision. You have bad-smelling vaginal discharge. You have thoughts about hurting yourself or your baby. If you ever feel like you may hurt yourself or others, or have thoughts about taking your own life, get help right away. You can go to the nearest emergency department or call: Your local emergency services (911 in the [place] A suicide crisis helpline, such as the National Suicide Prevention Lifeline at . This is open 24 hours a day. Summary The period of time right after you deliver your up to 6 12 weeks after delivery is called the period. Gradually return to your normal activities as told by your health care provider. Keep all follow-up visits for you and your baby as told by your health care provider. This information is not intended to replace advice given to you by your health care provider. Make sure you discuss any questions you have with your health care provider. Document Released: 07/28/2008 Document Revised: 10/04/2018 Document Reviewed: 07/15/2018 [employer] Patient Education 2020 [employer]. Follow Up Care 05/19/2023 18:03:12 With:JOSE ENRIQUE TOBAR DO Address: [address] [place] [address] [address] [place] [phone] When:Within 6 Week(s) Comments:Schedule appointment as soon as possible [facility] 05-19-2023 Note [facility] ADMISSION HISTORY AND PHYSICIAL History and Physical/Admit Note: S: Patient is a 33 year old AB1 female at 40.3 wks GA with EDC of 05/16/2023 confirmed by second trimester ultrasound who present to [facility] with the complaint of leaking fluid and contractions. complications include: None Maternal medications include: PNV, Vistaril, porcine thyroid, magnesium, digestive enzymes Bloodwork: Blood type: O+; Rubella status: immune; HBsAG status: negative; HIV status: negative; GBS status: negative; RPR: non-reactive O: Vitals Signs(Last 24 hrs)__Last Charted Minimum _Maximum Temp36.8(MAY 19 18:10)36.8(MAY 19 18:10)36.8(MAY 19 18:10) Gen: alert, awake, in mild laboring distress Lungs: clear to auscultation bilaterally, equal breath sounds, no wheezes or crackles. Heart: RRR without murmur Abd: gravid uterus : cervical exam: 8-9/100/0 Membranes: grossly ruptured FHTs: category 2 [place]: contractions every 2 to 3 minutes Ext: no edema Blood Type, External: O positive (05/19/23 18:26:00) Rubella, External: Immune (05/19/23 18:26:00) HIV Antibodies, External: Unknown (05/19/23 18:26:00) Group B Strep, External: Negative (05/19/23 18:26:00) Group B Strep Date Performed: 04/20/23 (05/19/23 18:26:00) Hepatitis B, External: Negative (05/19/23 18:26:00) Hepatitis B Date Performed: 11/10/22 (05/19/23 18:26:00) RPR, External: Nonreactive (05/19/23 18:26:00) Medication List Active Medications Ordered carboprost: 250 mcg, 1 mL, Intramuscular, Once, PRN: Other (see order comments). citric acid-sodium citrate: 30 mL, Oral, AsDirected, PRN: Gastric Upset. Lactated Ringers Infusion: 500 mL, IV Bolus, AsDirected, PRN: Other (see order comments). Lactated Ringers Infusion 1,000 mL: 125 mL/hr, Intravenous. lidocaine: 20 mg, 2 mL, Perineum, AsDirected, PRN: to perineal sutures. methylergonovine: 0.2 mg, 1 mL, Intramuscular, Once, PRN: Other (see order comments). miSOPROStol: 1,000 mcg, 5 tab(s), Rectal, Once, PRN: Other (see order comments). ondansetron: 4 mg, 2 mL, IV Push, q4h, PRN: Nausea. oxytocin: 20 unit(s), 2 mL, Intramuscular, Once, PRN: Other (see order comments). oxytocin 20 unit(s) + LR Premix Diluent 1,000 mL: 999 mL/hr, Intravenous. terbutaline: 0.25 mg, 0.25 mL, Subcutaneous, AsDirected, PRN: Other (see order comments). tranexamic acid: 1 gram(s), 100 mL, 300 mL/hr, IV Piggyback, AsDirected, PRN: Other (see order comments). Documented bacillus coagulans-calcium carbonate: 1 cap(s), Oral, qDay, 30 cap(s), 0 Refill(s). calcium citrate: 1,000 mg, 4 tab(s), Oral, qAM, 60 tab(s), 0 Refill(s). herbal/nutritional product: 1 capsule, Oral, qAM, 0 Refill(s). multivitamin, : 1 tab(s), Oral, qDay, 90 tab(s), 0 Refill(s). multivitamin with minerals: 1 tab(s), Oral, qDay, 30 tab(s), 0 Refill(s). omega-3 polyunsaturated fatty acids: 1,000 mg, 1 cap(s), Oral, qDay, 90 cap(s), 0 Refill(s). thyroid desiccated: 30 mg, 1 tab(s), Oral, qDay, 30 tab(s), 0 Refill(s). Medications Inactivated in the Last 72 Hours No medications found. A: 1. 33 yo AB1 female at 40.3 wks GA in active labor P: 1. Admit to L&D 2. Continuous external monitoring 3. IV placement was attempted but unable to get 4. Expectant management Digitally Signed by JOSE ENRIQUE TOBAR DO on 05/19/2023 07:17 PM [facility] 05-19-2023 Evaluation + Plan note Extrac makenzie from: Title:Clinical Document Author:JOSE ENRIQUE TOBAR DO Date:05/19/23 [facility] ADMISSION HISTORY AN D PHYSICIAL History and Physical/Admit Note: S: Patient is a 33 year old AB1 female at 40.3 wks GA with EDC of 05/16/2023 confirmed by second trimester ultrasound who present to [facility] with the complaint of leaking fluid and contractions. complications include: None Maternal medications include: PNV, Vistaril, porcine thyroid, magnesium, digestive enzymes Bloodwork: Blood type: O+; Rubella status: immune; HBsAG status: negative; HIV status: negative; GBS status: negative; RPR: non-reactive O: Vitals Signs(Last 24 hrs)__Last Charted Minimum Maximum Temp36.8(MAY 19 18:10)36.8(MAY 19 18:10)36.8(MAY 19 18:10) Gen: alert, awake, in mild laboring distress Lungs: clear to auscultation bilaterally, equal breath sounds, no wheezes or crackles. Heart: RRR without murmur Abd: gravid uterus : cervical exam: 8-9/100/0 Membranes: grossly ruptured FHTs: category 2 [place]: contractions every 2 to 3 minutes Ext: no edema Blood Type, External: O positive (05/19/23 18:26:00) Rubella, External: Immune (05/19/23 18::) HIV Antibodies, External: Unknown (05/19/23 18::) Group B Strep, External: Negative (05/19/23 18:26:00) Group B Strep Date Performed: 04/20/23 (05/19/23 18::) Hepatitis B, External: Negative (05/19/23 18:26:00) Hepatitis B Date Performed: 11/10/22 (05/19/23 18:26:) RPR, External: Nonreactive (05/19/23 18::) Medication List Active Medications Ordered carboprost: 250 mcg, 1 mL, Intramuscular, Once, PRN: Other (see order comments). citric acid-sodium citrate: 30 mL, Oral, AsDirected, PRN: Gastric Upset. Lactated Ringers Infusion: 500 mL, IV Bolus, AsDirected, PRN: Other (see order comments). Lactated Ringers Infusion 1,000 mL: 125 mL/hr, Intravenous. lidocaine: 20 mg, 2 mL, Perineum, AsDirected, PRN: to perineal sutures. methylergonovine: 0.2 mg, 1 mL, Intramuscular, Once, PRN: Other (see order comments). miSOPROStol: 1,000 mcg, 5 tab(s), Rectal, Once, PRN: Other (see order comments). ondansetron: 4 mg, 2 mL, IV Push, q4h, PRN: Nausea. oxytocin: 20 unit(s), 2 mL, Intramuscular, Once, PRN: Other (see order comments). oxytocin 20 unit(s) + LR Premix Diluent 1,000 mL: 999 mL/hr, Intravenous. terbutaline: 0.25 mg, 0.25 mL, Subcutaneous, AsDirected, PRN: Other (see order comments). tranexamic acid: 1 gram(s), 100 mL, 300 mL/hr, IV Piggyback, AsDirected, PRN: Other (see order comments). Documented bacillus coagulans-calcium carbonate: 1 cap(s), Oral, qDay, 30 cap(s), 0 Refill(s). calcium citrate: 1,000 mg, 4 tab(s), Oral, qAM, 60 tab(s), 0 Refill(s). herbal/nutritional product: 1 capsule, Oral, qAM, 0 Refill(s). multivitamin, : 1 tab(s), Oral, qDay, 90 tab(s), 0 Refill(s). multivitamin with minerals: 1 tab(s), Oral, qDay, 30 tab(s), 0 Refill(s). omega-3 polyunsaturated fatty acids: 1,000 mg, 1 cap(s), Oral, qDay, 90 cap(s), 0 Refill(s). thyroid desiccated: 30 mg, 1 tab(s), Oral, qDay, 30 tab(s), 0 Refill(s). Medications Inactivated in the Last 72 Hours No medications found. A: 1. 33 yo AB1 female at 40.3 wks GA in active labor P: 1. Admit to L&D 2. Continuous external monitoring 3. IV placement was attempted but unable to get 4. Expectant management Diagnostic Tests Pending * Rapid Plasma Reagin Test 05/19/23 [facility] 07-28-2023 Hospital Discharge instructions Patient Education 05/11/2023 10:43:44 [facility] Outpatient Instructions ([facility]) [facility] OUT[facility] HOME-GOING INSTRUCTIONS _X_ You are to follow up with your physician in ___ days/weeks. ACTIVITY ___ Bedrest _X__Activity as tolerated ___ No work/school for ___ days. ___Other PRESCRIPTION GIVEN ___Yes NAUSEA/VOMITING ___ Take small, frequent amounts of clear liquids. Avoid fruit juices and milk. ___ Increase fluid intake to a minimum of 8 ounces of fluid every hour while awake. ___ Soft diet. Rice, crackers, bananas, Jell-O, cooked carrots, applesauce. ___ [place] diet. Avoid caffeine, chocolate, alcohol, spiced/greasy foods. URINARY TRACT INFECTION ___ Drink 8-12 glasses of water every day. ___ Urinate frequently; do not limit fluids to reduce frequency of urination. ___ Call your physician if burning and frequency with urination returns after taking all your medication. ___ Call your physician if you have a temperature of 100.4 degrees Fahrenheit or higher. ___ Wipe from front to back. SIGNS OF PRE-ECLAMPSIA ___ Severe heartburn. ___ Persistent headache not relieved by Tylenol. ___ Increased in swelling of face, hands and feet. ___ Blurred vision, double vision, or spots in the eyes. ___ Persistent vomiting. ___ *Convulsions or seizures. LABOR ___ Restrict activity. ___ Drink 8-12 glasses of water every day. ___ Urinate frequently ___ Pelvic rest. No sexual intercourse/ Call your physician if you experience: ___ Increase in vaginal discharge, leaking fluid, or vaginal bleeding. ___ More than 4, 5, or 6 contractions in one hour. ___ Burning and frequency with urination. DECREASED MOVEMENT _X__ Lie down on your left side, drink some fluids and relax. Count the movements. You need to have 10 movements in 2 hours. _X__ If you do not feel the 10 movements, call your physician. OTHER _X__ After an exam you may experience some spotting or discharge. As long as it is not bright red and heavy like a period or continues to leak as if your water broke, it is to be expected. ___ LABOR Call your physician if you experience: _X__ Painful uterine contractions every _5__ minutes for _1__ hours. _X__A gush or continuous trickle of watery discharge. COME TO THE HOSPITAL AND CALL PHYSICIAN IF: _X__ Your abdomen feels continually firm. _X__ *Bleeding is bright red and enough to saturate a pad in one hour or less. *Call 911 or go to the nearest Emergency Room for assistance. Form [id number] D: 09/22 Follow Up Care 05/11/2023 10:14:27 With:SHAHBAZ EMMANUEL SENIOR NET ENGINEER-CNM Address: DR [facility] [address] [phone] [phone] When: only if needed [facility] 01-02-2022 Hospital Discharge instructions Patient Education 10/16/2021 01:06:57 Vacuum-Assisted Vaginal Delivery Vacuum-Assisted Vaginal Delivery Vacuum-assisted vaginal delivery is a type of delivery in which your health care provider uses a vacuum device to help you deliver your baby. The vacuum device is a suction cup with a handle attachedto it. This method may be used if your health care provider wants to assist or speed up delivery because of concerns about your health or the health of your baby during labor. The main benefit of this type of delivery is that it helps you avoid a delivery, which is a major surgery with a longer recovery time. What are the reasons for having a vacuum-assisted vaginal delivery? Your health care provider may consider this method of delivery if: There are concerns about your baby's heart rate during labor. You have pushed for a long time but your baby is not moving down the canal. You are too tired to continue pushing because labor has lasted a long time. You have health conditions that make it unsafe for you to push for too long. These conditions may include: ?Heart (cardiac) valve disease. ?Respiratory diseases, such as asthma or COPD. ?Preeclampsia or eclampsia. ?Long-term high blood pressure (chronic hypertension). How does this affect me? How is vacuum-assisted vaginal delivery performed? Your health care provider will check to determine the position of the baby's head and how far down the canal the baby has moved. Your health care provider will place the suction cup in your vagina against the baby's head. The pressure on the suction cup will be increased so the cup is attached to the baby's head. As you push during contractions, your health care provider will use gentle, controlled movements and traction to guide your baby out of the canal. What are the risks? Generally, this is a safe procedure. However, problems may occur, including the following: Cuts or tears (lacerations) in your vagina. Cuts or tears in your cervix. Development of a blood clot (hematoma). Tears in your perineum (perineal lacerations). The perineum is the area between the vagina and the anus. Discomfort and pain during delivery. Inability to pass urine (urinary retention) or inability to control the passing of urine (urinary incontinence). Inability to control the passing of stool. This occurs when muscles that surround the anus (rectal sphincter) are damaged. What can I expect after the procedure? After the procedure, you may have the following problems: Pain and bruising in the vaginal area. Difficulty walking or sitting shortly after the procedure. This will improve over time. Swelling and pain. This may last for a few weeks as you heal. Trouble passing urine. You may have pain, retention, or incontinence. Trouble passing stool. You may have pain or incontinence. Report any changes or new symptoms to your health care provider. How does this affect my baby? Generally, this is a safe procedure. However, problems may occur with your baby, including: Swelling, bruising, or small cuts on the scalp or head. Swelling or bruising to the eyes or face. Bleeding inside the skull. Nerve damage to the arm or face. Buildup of a substance (bilirubin) that is normally excreted as a part of bile. Follow these instructions at home: Managing pain and swelling If directed, put ice on the painful area: ?Put ice in a plastic bag. ?Place a towel between your skin and the bag. ?Leave the ice on for 20 minutes, 2 3 times a day. Use a pillow or cushion if sitting is uncomfortable. If you have perineal swelling: ?Do not sit for long periods of time. ?Rest in a lying position when possible for comfort. General instructions Do not swim or use a hot tub until your health care provider approves. If instructed by your health care provider: ?Do sitz baths 2 3 times a day. ?Do perineal rinsing after urinating or after passing stool. Take jzzc-dts-tcbeuse and prescription medicines only as told by your health care provider. Return to your normal activities as told by your health care provider. Ask your health care provider what activities are safe for you. Keep all follow-up visits as told by your health care provider. This is important. Summary Vacuum-assisted vaginal delivery is a type of delivery in which your health care provider uses a vacuum device to help you deliver your baby. The vacuum device has a suction cup that is attached to your baby's head to help gently guide your baby out of the canal. You may have pain and bruising in the vaginal area. Report any changes or new symptoms to your health care provider. This information is not intended to replace advice given to you by your health care provider. Make sure you discuss any questions you have with your health care provider. Document Released: 12/30/2018 Document Revised: 01/20/2020 Document Reviewed: 12/30/2018 [employer] Patient Education 2020 [employer]. 10/16/2021 01:06:39 Choosing to breastfeed is one of the best decisions you can make for yourself and your baby. A change in hormones during causes your breasts to make breast milk in your milk-producing glands. Hormones prevent breast milk from being released before your baby is born. They also prompt milk flow after . Once has begun, thoughts of your baby, as well as his or her suckingor crying, can stimulate the release of milk from your milk-producing glands. Benefits of Research shows that offers many health benefits for infants and mothers. It also offers a cost-free and convenient way to feed your baby. For your baby Your first milk (colostrum) helps your baby's digestive system to function better. Special cells in your milk (antibodies) help your baby to fight off infections. Breastfed babies are less likely to develop asthma, allergies, obesity, or type 2 diabetes. They are also at lower risk for sudden infant syndrome (SIDS). Nutrients in breast milk are better able to meet your baby s needs compared to infant formula. Breast milk improves your baby's brain development. For you helps to create a very special sarmiento between you and your baby. is convenient. Breast milk costs nothing and is always available at the correct temperature. helps to burn calories. It helps you to lose the weight that you gained during . makes your uterus return faster to its size before . It also slows bleeding (lochia) after you give . helps to lower your risk of developing type 2 diabetes, osteoporosis, rheumatoid arthritis, cardiovascular disease, and breast, ovarian, uterine, and endometrial cancer later in life. basics Starting Find a comfortable place to sit or lie down, with your neck and back well-supported. Place a pillow or a rolled-up blanket under your baby to bring him or her to the level of your breast (if you are seated). Nursing pillows are specially designed to help support your arms and your baby while you breastfeed. Make sure that your baby's tummy (abdomen) is facing your abdomen. Gently massage your breast. With your fingertips, massage from the outer edges of your breast inward toward the nipple. This encourages milk flow. If your milk flows slowly, you may need to continue this action during the feeding. Support your breast with 4 fingers underneath and your thumb above your nipple (make the letter Cwith your hand). Make sure your fingers are well away from your nipple and your baby s mouth. Stroke your baby's lips gently with your finger or nipple. When your baby's mouth is open wide enough, quickly bring your baby to your breast, placing your entire nipple and as much of the areola as possible into your baby's mouth. The areola is the colored area around your nipple. ?More areola should be visible above your baby's upper lip than below the lower lip. ?Your baby's lips should be opened and extended outward (flanged) to ensure an adequate, comfortable latch. ?Your baby's tongue should be between his or her lower gum and your breast. Make sure that your baby's mouth is correctly positioned around your nipple (latched). Your baby's lips should create a seal on your breast and be turned out (everted). It is common for your baby to suck about 2 3 minutes in order to start the flow of breast milk. Latching Teaching your baby how to latch onto your breast properly is very important. An improper latch can cause nipple pain, decreased milk supply, and poor weight gain in your baby. Also, if your baby is not latched onto your nipple properly, he or she may swallow some air during feeding. This can make your baby fussy. Burping your baby when you switch breasts during the feeding can help to get rid of the air. However, teaching your baby to latch on properly is still the best way to prevent fussinessfrom swallowing air while . Signs that your baby has successfully latched onto your nipple Silent tugging or silent sucking, without causing you pain. Infant's lips should be extended outward (flanged). Swallowing heard between every 3 4 sucks once your milk has started to flow (after your let-down milk reflex occurs). Muscle movement above and in front of his or her ears while sucking. Signs that your baby has not successfully latched onto your nipple Sucking sounds or smacking sounds from your baby while . Nipple pain. If you think your baby has not latched on correctly, slip your finger into the corner of your baby s mouth to break the suction and place it between your baby's gums. Attempt to start again. Signs of successful Signs from your baby Your baby will gradually decrease the number of sucks or will completely stop sucking. Your baby will fall asleep. Your baby's body will relax. Your baby will retain a small amount of milk in his or her mouth. Your baby will let go of your breast by himself or herself. Signs from you Breasts that have increased in firmness, weight, and size 1 3 hours after feeding. Breasts that are softer immediately after . Increased milk volume, as well as a change in milk consistency and color by the fifth day of . Nipples that are not sore, cracked, or bleeding. Signs that your baby is getting enough milk Wetting at least 1 2 diapers during the first 24 hours after . Wetting at least 5 6 diapers every 24 hours for the first week after . The urine should be clear or pale yellow by the age of 5 days. Wetting 6 8 diapers every 24 hours as your baby continues to grow and develop. At least 3 stools in a 24-hour period by the age of 5 days. The stool should be soft and yellow. At least 3 stools in a 24-hour period by the age of 7 days. The stool should be seedy and yellow. No loss of weight greater than 10% of weight during the first 3 days of life. Average weight gain of 4 7 oz (113 198 g) per week after the age of 4 days. Consistent daily weight gain by the age of 5 days, without weight loss after the age of 2 weeks. After a feeding, your baby may spit up a small amount of milk. This is normal. frequency and duration Frequent feeding will help you make more milk and can prevent sore nipples and extremely full breasts (breast engorgement). Breastfeed when you feel the need to reduce the fullness of your breasts orwhen your baby shows signs of hunger. This is called on demand. Signs that your baby is hungry include: Increased alertness, activity, or restlessness. Movement of the head from side to side. Opening of the mouth when the corner of the mouth or cheek is stroked (rooting). Increased sucking sounds, smacking lips, cooing, sighing, or squeaking. Ewle-kd-aelly movements and sucking on fingers or hands. Fussing or crying. Avoid introducing a pacifier to your baby in the first 4-6 weeks after your baby is born. After this time, you may choose to use a pacifier. Research has shown that pacifier use during the first yearof a baby's life decreases the risk of sudden infant syndrome (SIDS). Allow your baby to feed on each breast as long as he or she wants. When your baby unlatches or falls asleep while feeding from the first breast, offer the second breast. Because newborns are often sleepy in the first few weeks of life, you may need to awaken your baby to get him or her to feed. times will vary from baby to baby. However, the following rules can serve as a guide to help you make sure that your baby is properly fed: Newborns (babies 4 weeks of age or younger) may breastfeed every 1 3 hours. Newborns should not go without for longer than 3 hours during the day or 5 hours during the night. You should breastfeed your baby a minimum of 8 times in a 24-hour period. Breast milk pumping Pumping and storing breast milk allows you to make sure that your baby is exclusively fed your breast milk, even at times when you are unable to breastfeed. This is especially important if you go back to work while you are still , or if you are not able to be present during feedings. Your incident response consultant can help you find a method of pumping that works best for you and give you guidelines about how long it is safe to store breast milk. Caring for your breasts while you breastfeed Nipples can become dry, cracked, and sore while . The following recommendations can help keep your breasts moisturized and healthy: Avoid using soap on your nipples. Wear a supportive bra designed especially for nursing. Avoid wearing underwire- style bras or extremely tight bras (sports bras). Air-dry your nipples for 3 4 minutes after each feeding. Use only cotton bra pads to absorb leaked breast milk. Leaking of breast milk between feedings is normal. Use lanolin on your nipples after . Lanolin helps to maintain your skin's normal moisture barrier. Pure lanolin is not harmful (not toxic) to your baby. You may also hand express a few drops of breast milk and gently massage that milk into your nipples and allow the milk to air-dry. In the first few weeks after giving , some women experience breast engorgement. Engorgement can make your breasts feel heavy, warm, and tender to the touch. Engorgement peaks within 3 5 days after you give . The following recommendations can help to ease engorgement: Completely empty your breasts while or pumping. You may want to start by applying warm, moist heat (in the shower or with warm, water-soaked hand towels) just before feeding or pumping.This increases circulation and helps the milk flow. If your baby does not completely empty your breasts while , pump any extra milk after he or she is finished. Apply ice packs to your breasts immediately after or pumping, unless this is too uncomfortable for you. To do this: ?Put ice in a plastic bag. ?Place a towel between your skin and the bag. ?Leave the ice on for 20 minutes, 2 3 times a day. Make sure that your baby is latched on and positioned properly while . If engorgement persists after 48 hours of following these recommendations, contact your health careprovider or a incident response consultant. Overall health care recommendations while Eat 3 healthy meals and 3 snacks every day. Well-nourished mothers who are need an additional 450 500 calories a day. You can meet this requirement by increasing the amount of a balanced diet that you eat. Drink enough water to keep your urine pale yellow or clear. Rest often, relax, and continue to take your vitamins to prevent fatigue, stress, and low vitamin and mineral levels in your body (nutrient deficiencies). Do not use any products that contain nicotine or tobacco, such as cigarettes and e-cigarettes. Yourbaby may be harmed by chemicals from cigarettes that pass into breast milk and exposure to secondhand smoke. If you need help quitting, ask your health care provider. Avoid alcohol. Do not use illegal drugs or marijuana. Talk with your health care provider before taking any medicines. These include nbqn-ugz-cxnvcyf andprescription medicines as well as vitamins and herbal supplements. Some medicines that may be harmful to your baby can pass through breast milk. It is possible to become while . If control is desired, ask your healthcare provider about options that will be safe while your baby. Where to find more information: [employer]: www.llli.org Contact a health care provider if: You feel like you want to stop or have become frustrated with . Your nipples are cracked or bleeding. Your breasts are red, tender, or warm. You have: ?Painful breasts or nipples. ?A swollen area on either breast. ?A fever or chills. ?Nausea or vomiting. ?Drainage other than breast milk from your nipples. Your breasts do not become full before feedings by the fifth day after you give . You feel sad and depressed. Your baby is: ?Too sleepy to eat well. ?Having trouble sleeping. ?More than 1 week old and wetting fewer than 6 diapers in a 24-hour period. ?Not gaining weight by 5 days of age. Your baby has fewer than 3 stools in a 24-hour period. Your baby's skin or the white parts of his or her eyes become yellow. Get help right away if: Your baby is overly tired (lethargic) and does not want to wake up and feed. Your baby develops an unexplained fever. Summary offers many health benefits for and mothers. Try to breastfeed your infant when he or she shows early signs of hunger. Gently tickle or stroke your baby's lips with your finger or nipple to allow the baby to open his or her mouth. Bring the baby to your breast. Make sure that much of the areola is in your baby's mouth. Offer one side and burp the baby before you offer the other side. Talk with your health care provider or incident response consultant if you have questions or you face problems as you breastfeed. This information is not intended to replace advice given to you by your health care provider. Make sure you discuss any questions you have with your health care provider. Document Released: 10/01/2006 Document Revised: 12/26/2018 Document Reviewed: 11/02/2017 [employer] Patient Education 2020 [employer]. 10/16/2021 01:06:39 Care of a Perineal Tear Care of a Perineal Tear A perineal tear is a cut or tear (laceration) in the tissue between the opening of the vagina and the anus (perineum). Some women develop a perineal tear during a vaginal . This can happen as the baby emerges from the canal and the perineum is stretched. There are four degrees of perineal tears based on how deep and long the laceration is: First degree. This involves a shallow tear at the edge of the vaginal opening that extends slightlyinto the perineal skin. Second degree. This involves tearing described in first degree perineal tear, and an additional deeper tear of the vaginal opening and perineal tissues. It may also include tearing of a muscle just under the perineal skin. Third degree. This involves tearing described in first and second degree perineal tears, with the addition that tearing in the third degree extends into the muscle of the anus (anal sphincter). Fourth degree. This involves all levels of tears described in first, second, and third degree perineal tears, with the tear in the fourth degree extending into the rectum. First and second degree perineal tears may or may not be stitched closed, depending on their location and appearance. Third and fourth degree perineal tears are stitched closed immediately after the baby s . What are the risks? Depending on the type of perineal tear you have, you may be at risk for: Bleeding. Developing a collection of blood in the perineal tear area (hematoma). Pain. This may include pain when you urinate, or pain when you have a bowel movement. Infection at the site of the tear. Fever. Trouble controlling your urination or bowels (incontinence). Painful sex. How to care for a perineal tear Wound care Take a sitz bath as told by your health care provider. A sitz bath is a warm water bath that is taken while you are sitting down. The water should only come up to your hips and should cover your buttocks. This can speed up healing. 1.Partially fill a bathtub with warm water. You will only need the water to be deep enough to coveryour hips and buttocks when you are sitting in it. 2.If your health care provider told you to put medicine in the water, follow the directions exactlyas told. 3.Sit in the water and open the tub drain a little. 4.Turn on the warm water again to keep the tub at the correct level. Keep the water running constantly. 5.Soak in the water for 15 20 minutes or as told by your health care provider. 6.After the sitz bath, pat the affected area dry first. Do not rub it. 7.Be careful when you stand up after the sitz bath because you may feel dizzy. Wash your hands before and after applying medicine to the area. Wear a sanitary pad as told by your health care provider. Change the pad as often as told by your health care provider. Leave stitches (sutures), skin glue, or adhesive strips in place. These skin closures may need to stay in place for 2 weeks or longer. If adhesive strip edges start to loosen and curl up, you may trim the loose edges. Do not remove adhesive strips completely unless your health care provider tells you to do that. Check your wound every day for signs of infection. Check for: ?Redness, swelling, or pain. ?Fluid or blood. ?Warmth. ?Pus or a bad smell. Managing pain If directed, put ice on the painful area: ?Put ice in a plastic bag. ?Place a towel between your skin and the bag. ?Leave the ice on for 20 minutes, 2 3 times a day. Apply a numbing spray to the perineal tear site as told by your health care provider. This may helpwith discomfort. Take and apply sdgf-ovh-emhnprt and prescription medicines only as told by your health care provider. If told, put about 3 witch fadumo-containing hemorrhoid treatment pads on top of your sanitary pad. The witch fadumo in the hemorrhoid pads helps with swelling and discomfort. Sit on an inflatable ring or pillow. This may provide comfort. General instructions Squeeze warm water on your perineum after urinating. This should be done from front to back with a squeeze bottle. Pat the area to dry it. Do not have sex, use tampons, or place anything in your vagina for at least 6 weeks or as told by your health care provider. Keep all follow-up visits as told by your health care provider. These include any visits. This is important. Contact a health care provider if: Your pain is not relieved with medicines. You have painful urination. You have redness, swelling, or pain around your tear. You have fluid or blood coming from your tear. Your tear feels warm to the touch. You have pus or a bad smell coming from your tear. You have a fever. Get help right away if: Your tear opens. You cannot urinate. You have an increase in bleeding. You have severe pain. Summary A perineal tear is a cut or tear (laceration) in the tissue between the opening of the vagina and the anus (perineum). There are four degrees of perineal tears based on how deep and long the laceration is. First and second-degree perineal tears may or may not be stitched closed, depending on their location and appearance. Third and fourth- degree perineal tears are stitched closed immediately after thebaby s . Follow your health care provider's instructions for caring for your perineal tear. Know how to manage pain and how to care for your wound. Know when to call your health care provider and when to seekimmediate emergency care. This information is not intended to replace advice given to you by your health care provider. Make sure you discuss any questions you have with your health care provider. Document Released: 02/15/2015 Document Revised: 09/13/2018 Document Reviewed: 11/05/2017 [employer] Patient Education 2020 [employer]. 10/16/2021 01:06:38 7b- Depression and Blues (07/2020) (CUSTOM) Ismael Depression and Blues All mothers are at risk of developing depression or the blues. These mood changes can occur right after giving , or they may occur many months after giving . blues or depression can be mild or severe. Additionally, depression can goaway rather quickly, or it can be a long-term condition. CAUSES Raised hormone levels and the rapid drop in those levels are thought to be a main cause of depression and blues. A number of hormones change during and after . Estrogenand progesterone usually decrease right after delivery. The levels of thyroid hormone and various cortisol steroids also rapidly drop. Other factors that play a role in these mood changes include major life events and genetics. RISK FACTORS If you have any of the following risks for blues or depression, know what symptoms to watch out for during the period. Risk factors that may increase the likelihood of getting blues or depression include: Having a personal or family history of depression. Having depression while being . Having premenstrual mood issues or mood issues related to oral contraceptives. Having a lot of life stress. Having marital conflict. Lacking a social support network. Having health problems, such as diabetes. SIGNS AND SYMPTOMS Symptoms of blues include: Brief changes in mood, such as going from extreme happiness to sadness. Decreased concentration. Difficulty sleeping. Crying spells, tearfulness. Irritability. Anxiety. Symptoms of depression typically begin within the first month after giving . These symptoms include: Difficulty sleeping or excessive sleepiness. Marked weight loss. Agitation. Feelings of worthlessness. Lack of interest in activity or food. psychosis is a very serious condition and can be dangerous. Fortunately, it is rare. Displaying any of the following symptoms is cause for immediate medical attention. Symptoms of psychosis include: Hallucinations and delusions. Bizarre or disorganized behavior. Confusion or disorientation. DIAGNOSIS A diagnosis is made by an evaluation of your symptoms. There are no medical or lab tests that lead to a diagnosis, but there are various questionnaires that a health care provider may use to identifythose with blues, depression, or psychosis. Often, a screening tool called the Darrington Depression Scale is used to diagnose depression in the period. TREATMENT blues usually goes away on its own in 1 2 weeks. Social support is often all that is needed. You will be encouraged to get adequate sleep and rest. Occasionally, you may be given medicinesto help you sleep. depression requires treatment because it can last several months or longer if it is not treated. Treatment may include individual or group therapy, medicine, or both to address any social,physiological, and psychological factors that may play a role in the depression. Regular exercise, a healthy diet, rest, and social support may also be strongly recommended. psychosis is more serious and needs treatment right away. Hospitalization is often needed. HOME CARE INSTRUCTIONS Get as much rest as you can. Exercise regularly. Some women find yoga and walking to be beneficial. Eat a balanced and nourishing diet. Do little things that you enjoy. Have a cup of tea, take a bubble bath, read your favorite magazine, or listen to your favorite music. Avoid alcohol. Ask for help with assembler metal furniture, cooking, grocery shopping, or running errands as needed. Do nottry to do everything. Talk to people close to you about how you are feeling. Get support from your partner, family members, and friends. Try to stay positive in how you think. Think about the things you are grateful for. Do not spend a lot of time alone. Only take dryl-ixf-pcbdwbq or prescription medicine as directed by your health care provider. Keep all your appointments. Let your health care provider know if you have any concerns. SEEK MEDICAL CARE IF: You are having a reaction to or problems with your medicine. SEEK IMMEDIATE MEDICAL CARE IF: You have suicidal feelings. You think you may harm yourself or someone else. MAKE SURE YOU: Understand these instructions. Will watch your condition. Will get help right away if you are not doing well or get worse. Resource: [employer] Patient Information 2015 [employer]. This information is not intended to replace advicegiven to you by your health care provider. Make sure you discuss any questions you have with your health care provider. Follow Up Care 10/14/2021 10:05:03 With:HERNANDEZ TRIVDEI Address: [address] [place] [address], [address] Dr. Jose Enrique Tobar, my [place]CH[place] [address]- [phone] When:11/27/2021 [facility] 12-31-2021 Evaluation + Plan noteExtracted from: Title:Clinical Document Author:HERNANDEZ TRIVEDI Date:10/14/21 [facility] ADMISSION HISTORY A [facility] PHYSICIAL History and Physical/Admit Note: S: Patient is a 4o year old female at 40.6 wks GA with EDC of 10/08/2021 confirmed by first trimester ultrasound who present to [facility] following BPP with DENISE Sum of 2.86. complications include: IVF , rubella non immune History: SAB x1 Maternal medications include: [place] thyroid 30mg, PNV, Colace, Mirilax, Vitamin D, probiotic Bloodwork: Blood type: O positive; Rubella status: non immune; HBsAG status: negative; HIV status: negative; GBS status: negative O: Vitals Signs(Last 24 hrs)__Last Charted Minimum Maximum Heart Rate82(OCT 14:)82(OCT 14:)90(OCT 14:) Resp Rate18(OCT 14:)18(OCT 14:)18(OCT 14:) QOG595(OCT 14:)135(OCT 14:)H 158(OCT 14) DBP76(OCT 14:)76(OCT 14:)H 90(OCT 14:) Gen: alert, awake, in mild laboring distress Lungs: clear to auscultation bilaterally, equal breath sounds, no wheezes or crackles. Heart: RRR without murmur Abd: gravid uterus : cervical exam: /-2 Membranes: SROM, unknown time FHTs: 145, mod, + accels, - decels [place]: irritability Ext: no edema No 36hr Lab Data Medication List Active Medications Ordered carboprost: 250 mcg, 1 mL, Intramuscular, Once, PRN: Other (see order comments). citric acid-sodium citrate: 30 mL, Oral, AsDirected, PRN: Gastric Upset. Lactated Ringers Infusion: 500 mL, IV Bolus, AsDirected, PRN: Other (see order comments). Lactated Ringers Infusion 1,000 mL: 125 mL/hr, Intravenous. lidocaine: 20 mg, 2 mL, Perineum, AsDirected, PRN: to perineal sutures. methylergonovine: 0.2 mg, 1 mL, Intramuscular, Once, PRN: Other (see order comments). miSOPROStol: 1,000 mcg, 5 tab(s), Rectal, Once, PRN: Other (see order comments). ondansetron: 4 mg, 2 mL, IV Push, q4h, PRN: Nausea. oxytocin: 20 unit(s), 2 mL, Intramuscular, Once, PRN: Other (see order comments). oxytocin 20 unit(s) [2 munit/min] + Lactated Ringers Infusion 1,000 mL: 6 mL/hr, Intravenous. oxytocin 20 unit(s) + Lactated Ringers Infusion 1,000 mL: 999 mL/hr, Intravenous. terbutaline: 0.25 mg, 0.25 mL, Subcutaneous, AsDirected, PRN: Other (see order comments). terbutaline: 0.25 mg, 0.25 mL, Subcutaneous, AsDirected, PRN: Control symptoms. thyroid desiccated: 15 mg, 0.5 tab(s), Oral, qDay. Documented bacillus coagulans-calcium carbonate: 1 cap(s), Oral, qDay, 30 cap(s), 0 Refill(s). calcium citrate: 1,000 mg, 4 tab(s), Oral, qAM, 60 tab(s), 0 Refill(s). docusate: 100 mg, 1 cap(s), Oral, BID, PRN: as needed for constipation, 20 cap(s), 0 Refill(s). herbal/nutritional product: 1 capsule, Oral, qAM, 0 Refill(s). multivitamin, : 1 tab(s), Oral, qDay, 90 tab(s), 0 Refill(s). multivitamin with minerals: 1 tab(s), Oral, qDay, 30 tab(s), 0 Refill(s). omega-3 polyunsaturated fatty acids: 1,000 mg, 1 cap(s), Oral, qDay, 90 cap(s), 0 Refill(s). polyethylene glycol 3350: 17 gram(s), Oral, qDay, dissolve in water before taking, 14 EA, 0 Refill(s). thyroid desiccated: 15 mg, 1 tab(s), Oral, qDay, 30 tab(s), 0 Refill(s). Medications Inactivated in the Last 72 Hours No medications found. A: 1. 31 yo female at 40.6 wks GA 2. IOL for SROM with unknown rupture time 3. GBS negative 4. as a result of IVF P: 1. Admit to L&D 2. Cont external monitoring 3. IV placement/locked 4. Pitocin IOL per protocol 5. Frequent position changes/labor support 6. Pain management per pt request [facility] Evaluation + Plan note No data available for this section [facility] Evaluation + Plan note Future Appointments Appointment Date:04/10/2022 01:30:00 PM Scheduled Provider:SIMIN SEE MD Location:[facility] [place] Appointment Type:GS MUSEUM SECURITY CHIEF [facility] Evaluation + Plan note Future Appointments Appointment Date:07/28/2025 11:30:00 AM Scheduled Provider:DASIA BANSAL Location: [place] Appointment Type: MUSEUM SECURITY CHIEF [facility] Evaluation + Plan note Future Appointments Appointment Date:08/24/2025 11:30:00 AM Scheduled Provider:JESU BRAR MD Location: [place] Appointment Type: OV OB Routine Follow Up Future Scheduled Tests Laboratory* Glucose 1 Hour Challenge 07/28/25 * Complete Blood Count 07/28/25 [facility] Hospital Discharge instructions No data available for this section [facility] Progress note No data available for this section [facility] Summary Purpose Family History No Family History Records Found Advance Directives No Advanced Directives Records FoundNo Advanced Directives Records FoundNo Advanced Directives Records FoundNo Advanced Directives Records FoundNo Advanced Directives Records FoundNo Advanced Directives Records Found Additional Source Comments Care Team (unrecognized sect ion and content) Personnel Name: LUIZ RODRIGUEZ Address: Address: [address] [place] [address] Care Team Personnel Name: LUIZ RODRIGUEZ Position: P4 Advanced Practice Nurse Member Role: Primary Care Physician Address: Address: [address] [place] [address] Care Team Related Persons Name: JERARDO JENSEN Address: Home [address] [place], [place] [id number] Patient Care team informatio n (unrecognized section and content) Care Team Personnel Name: LUIZ RODRIGUEZ Position: P4 Advanced [employer] Member Role: Primary Care Physician Address: Address: [address] [place] [id number] [place] [address] Care Team Related Persons Name: JERARDO JENSEN Address: Home [address], [place] [id number] Care Team Personnel Name: LUIZ RODRIGUEZ Position: P4 Advanced [employer] Member Role: Primary Care Physician Address: Address: [address] [place] [address] Care Team Related Persons Name: JERARDO JENSEN Address: Home [address] [place], [place] [phone] Care Team Personnel Name: LUIZ RODRIGUEZ Position: P4 Advanced [employer] Member Role: Primary Care Physician Address: Address: [address] [place] [address] Care Team Related Persons Name: BETHANY JENSEN Address: Home [address] [place], [place] [phone] [place] Name: JERARDO JENSEN Address: [address] [place], [place] [id number] Care Team Related Persons Name: BETHANY EJNSEN Address: Home [address] [place], [place] [phone] [place] Name: JERARDO JENSEN Address: [address] [place], [place] [id number] Care Team Related Persons Name: BETHANY JENSEN Address: [address] [place], [place] [phone] [place] Name: JERARDO JENSEN Address: [address] [place], [place] [phone] Care Team Personnel Name: PHYSICIAN, NOT RECORDED Member Role: Primary Care Physician Care Team Related Persons Name: BETHANY JENSEN Name: JERARDO JENSEN Care Team Personnel Name: PHYSICIAN, NOT RECORDED Member Role: Primary Care Physician Care Team Related Persons Name: BETHANY JENSEN Name: JENSENJERARDO INFORMATION SOURCE (unrecogn ized section and content) DATE CREATED AUTHOR 05/24/2023 [facility] DATE CREATED AUTHOR AUTHOR'S ORGANIZ ATION 03/28/2024 [facility] ([place]) DATE CREATED AUTHOR AUTHOR'S ORGANIZ ATION 04/11/2025 [facility] DATE CREATED AUTHOR AUTHOR'S ORGANIZ ATION 04/12/2025 [facility] DATE CREATED AUTHOR AUTHOR'S ORGANIZ ATION 07/30/2025 [facility] DATE CREATED AUTHOR AUTHOR'S ORGANIZ ATION 08/12/2025 [facility] FOR RECORDS PERTAINING TO PATIENTS WHO ARE OR HAVE BEEN ENROLLED IN A CHEMICAL DEPENDENCY/SUBSTANCEABUSE PROGRAM, SOME INFORMATION MAY BE OMITTED. This clinical summary was aggregated from multiple sources. Caution should be exercised in using it in the provision of clinical care. This summary normalizes information from multiple sources, and as a consequence, information in this document may materially change the coding, format and clinical context of patient data. In addition, data may be omitted in some cases. CLINICAL DECISIONS SHOULD BE BASED ON THE PRIMARY CLINICAL RECORDS. [employer] [facility]. provides no warranty or guarantee of the accuracy or completeness of information in this document.
[2025-10-10 11:58] VITALS: BP 115/61; PULSE 80
[2025-10-10 12:00] VITALS: RESP 16; TEMP 36.3; O2SAT 98
[2025-10-10 12:02] VITALS: BMI 34.1
--- NOTE | 2025-10-10 18:21 | OB.TRI.NOTE ---
HPI - General General Date of Service: 10/10/25 HPI Narrative TINO JENSEN, is a 35 F who presents for decreased FM> Maternal Data Information MAYRA Calculator Estimated Delivery Date Method Current WG Current Estimate 11/18/25 Manual 34w 3d PFSH [facility] Medical History (Updated 10/10/25 @ 18:[address] Emanuel Bishop MD) Impacted cerumen of both ears Painless rectal bleeding Home Medications ?Medication ?Instructions ?Recorded ?Last Taken ?Type calcium citrate 250 mg PO DAILY 09/05/22 10/10/25 History omega-3 fatty acids 1,000 mg 1,000 mg PO DAILY 09/05/22 10/10/25 History capsule thyroid (pork) 30 mg tablet 60 mg PO DAILY 09/05/22 10/09/25 History ([place] Thyroid) Allergy/AdvReac Type Severity Reaction Status Date / Time fentanyl AdvReac Other Verified 10/10/25 11:53 Family History Mother Arthritis Depression Osteoarthritis Osteoporosis Surgical History S/P LASIK surgery of both eyes Social History household members: spouse Smoking Status: Never smoker alcohol intake: current alcohol intake frequency: a few times a month NST FHR Rate Baby A Baseline: 140 Variability:: Moderate Accelerations:: 15 x 15 Decelerations:: None Uterine Activity:: quiet Assessment & Plan (1) Decreased movement: QUALIFIERS: Fetus number: single or unspecified fetus Trimester: third trimester Qualified Code(s): O36.8130 - Decreased movements, third trimester, not applicable or unspecified PLAN: Plan Reactive NST
== END 2025-10-10 12:35 | disposition home or self-care (01) ==
LOC: WPOUT 11:43 → WP 11:44
PROVIDERS: Referring Provider Obstetrics & Gynecology; Visit Provider Obstetrics & Gynecology
DX: O36.8130 Decreased fetal movements, third trimester, not applicable or unspecified (principal); Z3A.34 34 weeks gestation of pregnancy
CPT/HCPCS: 59025; 59050; 99221; G0378